=== PATIENT | female | born 1985 | race Caucasian/White ===

== ENCOUNTER 2017-09-12 10:55 | Emergency (ER) | payer SELFPAY ==
[2017-09-12 11:14] VITALS: BP 114/70; PULSE 73; RESP 20; TEMP 36.6; O2SAT 97; BMI 28.3
--- NOTE | 2017-09-12 11:18 | HMH.EDUTC ---
[facility] [place] Impression: Sore throat Disposition: Home, Self-Care Condition on Discharge: Good Instructions: DI for Allergic Rhinitis Additional Instructions: * No sign of bacterial infection. Sounds like possibly drainage from allergies. * Monitor Temp. Feelish and having a fever are not the same thing. We would not expect fevers with allergies so if occurring, be sure to follow up. * Encourage fluids, water, gatorade, powerade, pedialyte if /toddler/child * warm salt water gargles * warm fluids * sore throat lozenges * sleep elevated * humidifier/vaporizer * Start Claritin 10mg daily and flonase 2 sprays each nostril daily. Can take several days before you notice improvement. Wait one week and if symptoms controlled, back down to 1 spray flonase each nostril and the claritin. If symptoms return, go back to 2 sprays but if symptoms remain controlled, give it a week and try stopping flonase. If symptoms return, start back at 1 spray each nostril with claritin but if symptoms remain controlled, continue just claritin. Wait another week and if still controlled, try stopping claritin. If symptoms return, restart claritin but if remain controlled, no medication. * * Your throat swab was sent for culture. Those results are typically sent to your primary care. Be sure to follow up in 2-3 days if no improvement so they can review those results and treat if necessary. If you don't have primary care, I recommend you get one but in the mean time, you will have to return to a walk in clinic. Referrals: Annalee Pack PA [Primary Care Provider] - (IMMEDIATELY for new or worsening symptoms OR no noticeable improvement. 911 for difficulty breathing or swallowing.) Time of Disposition: 12:28 Medical Decision Making - Bob Inquiry Pt receiving controlled substance: No Vital Signs: 09/12/17 11:14 Temperature 98 F Temperature Source Temporal Artery Scan Pulse Rate [Brachial] 73 Respiratory Rate 20 Blood Pressure [Right Arm] 114/70 Blood Pressure Mean [Right Arm] 84 Blood Pressure Position [Right Arm] Sitting 02 Sat by Pulse Oximetry 97 - Lab Data Lab results reviewed: Yes: I reviewed the patient's lab results. Lab Results 09/12/17 11:14: Strep Scn Rapid Clinic Negative 09/12/17 11:49: Monoscreen Negative Orders (Tests/Meds): ORDERS Category Date Time Status Strep Screen Confirmation Stat Micro 09/12/17 11:14 [place] [facility] [place] - General Stated complaint: sore throat fever Time Seen by Provider: 09/12/17 11:10 Mode of Arrival: Ambulatory Source of Information: Patient Limitations: No Limitations Description of Symptoms (Recalled from Triage Doc. by RN): SORE THROAT FOR 1 MONTH HEENT Symptoms (Recalled from RN notes): Yes Resp Symptoms (Recalled from RN notes): No Skin Symptoms (Recalled from RN notes): No MS Symptoms (Recalled from RN notes): No Functional Status (Recalled from RN notes): NA - History of Present Illness Provider Complaint: c/o sore throat x 1 month. Without insurance so was trying to treat at home. Warm salt water gargles help but then returns. Ibprofen helps other symptoms . Intermittently feels feverish. some days I do and some I don't . Energy zapped . No difficulty swallowing just hurts and I feel like it has been swollen over a month now . No known sick contacts. Worried about her symptoms because of 2 small kids at home. - Related Data Allergies Allergy/AdvReac Type Severity Reaction Status Date / Time No Known Allergies Allergy Unverified 06/11/17 14:47 - Worker's Comp Is this a Worker's Comp case?: No [facility] History I have reviewed the patient's past medical history: Yes Medical History: Denies:: Diabetes Mellitus Type 1, Diabetes Mellitus Type 2, Hypertension Other Surgeries: Yes: Appendectomy, Other (cholecystectomy; right ovary) - Social History Alcohol Intake: never - Psychiatric History Expresses thoughts of harming self/other
--- NOTE | 2017-09-12 11:21 | ED_ITS ---
[facility] – [place] Clinical Impression: Sore throat Disposition: Home, Self-Care Condition on Discharge: Good Instructions: DI for Allergic Rhinitis Additional Instructions: * No sign of bacterial infection. Sounds like possibly drainage from allergies. * Monitor Temp. Feelish and having a fever are not the same thing. We would not expect fevers with allergies so if occurring, be sure to follow up. * Encourage fluids, water, gatorade, powerade, pedialyte if /toddler/ child * warm salt water gargles * warm fluids * sore throat lozenges * sleep elevated * humidifier/vaporizer * Start Claritin 10mg daily and flonase 2 sprays each nostril daily. Can take several days before you notice improvement. Wait one week and if symptoms controlled, back down to 1 spray flonase each nostril and the claritin. If symptoms return, go back to 2 sprays but if symptoms remain controlled, give it a week and try stopping flonase. If symptoms return, start back at 1 spray each nostril with claritin but if symptoms remain controlled, continue just claritin. Wait another week and if still controlled, try stopping claritin. If symptoms return, restart claritin but if remain controlled, no medication. * * Your throat swab was sent for culture. Those results are typically sent to your primary care. Be sure to follow up in 2-3 days if no improvement so they can review those results and treat if necessary. If you don't have primary care , I recommend you get one but in the mean time, you will have to return to a walk in clinic. Referrals: Annalee Pack PA [Primary Care Provider] - (IMMEDIATELY for new or worsening symptoms OR no noticeable improvement. 911 for difficulty breathing or swallowing.) Time of Disposition: 12:28 Medical Decision Making - Bob Inquiry Pt receiving controlled substance: No Vital Signs: 09/12/17 11:14 Temperature 98 F Temperature Source Temporal Artery Scan Pulse Rate [Brachial] 73 Respiratory Rate 20 Blood Pressure [Right Arm] 114/70 Blood Pressure Mean [Right Arm] 84 Blood Pressure Position [Right Arm] Sitting 02 Sat by Pulse Oximetry 97 - Lab Data Lab results reviewed: Yes: I reviewed the patient's lab results. Lab Results 09/12/17 11:14: Strep Scn Rapid Clinic Negative 09/12/17 11:49: Monoscreen Negative Orders (Tests/Meds): ORDERS Category Date Time Status Strep Screen Confirmation Stat Micro 09/12/17 11:14 Received [facility] [place] HPI - General Stated complaint: sore throat fever Time Seen by Provider: 09/12/17 11:10 Mode of Arrival: Ambulatory Source of Information: Patient Limitations: No Limitations Description of Symptoms (Recalled from Triage Doc. by RN): SORE THROAT FOR 1 MONTH HEENT Symptoms (Recalled from RN notes): Yes Resp Symptoms (Recalled from RN notes): No Skin Symptoms (Recalled from RN notes): No MS Symptoms (Recalled from RN notes): No Functional Status (Recalled from RN notes): NA - History of Present Illness Provider Complaint: c/o sore throat x 1 month. Without insurance so was trying to treat at home. Warm salt water gargles help but then returns. Ibprofen helps other symptoms . Intermittently feels feverish. some days I do and some I don' t . Energy zapped . No difficulty swallowing just hurts and I feel like it has been swollen over a month now . No known sick contacts. Worried about her symptoms because of 2 small kids at home. - Related Data Allergies Allergy
--- NOTE | 2017-09-12 11:39 | PC.NURSE ---
LAB CALLED AT [id number]
[2017-09-12 11:41] LABS: UTC Strep Screen (Rapid) Negative (Negative)
[2017-09-12 12:19] LABS: Monoscreen (Rapid) Negative (Negative)
[2017-09-12 12:32] VITALS: BP 114/70; PULSE 73; RESP 20; TEMP 36.6; O2SAT 97
== END 2017-09-12 12:34 | disposition home or self-care (01) ==
PROVIDERS: Emergency Provider Nurse Practitioner Family; Family Provider Physician Assistant; PCP Physician Assistant
DX: J02.9 Acute pharyngitis, unspecified (principal)
CPT/HCPCS: 36415; 86318; 87880; 99202

== ENCOUNTER → 2018-03-11 10:29 | Outpatient (REF) | payer OTHER, SELFPAY ==
[2018-03-11 17:49] LABS: Basophils % 0.3 % (0.1-2.0); Eosinophils # 0.2 K/mm3 (0.0-0.4); Eosinophils % 1.5 % (0.1-12.0); Hematocrit 40.7 % (37.0-47.0); Hemoglobin 13.2 g/dL (12.2-16.2); Lymphocytes # 2.9 K/mm3 (0.7-4.5); Lymphocytes % 28.8 K/mm3 (10-50); Mean Corpuscular HGB Conc 32.4 g/dL (31.8-35.4); Mean Corpuscular Hemoglobin 29.4 pg (27.0-31.2); Mean Corpuscular Volume 90.7 fl (81-99); Mean Platelet Volume 8.3 fl (7.4-10.4); Monocytes # 0.5 K/mm3 (0.1-1.0); Neutrophils # 6.4 K/mm3 (1.8-7.8); Neutrophils % 64.4 % (37.0-80.0); Platelet Count 353 K/mm3 (142-424); Red Blood Count 4.49 M/mm3 (4.20-5.40); White Blood Count 9.9 K/mm3 (4.8-10.8)
[2018-03-11 18:55] LABS: Alanine Aminotransferase 28 U/L (12-78); Albumin/Globulin Ratio 1.4 (1.1-1.8); Aspartate Amino Transferase 15 U/L (15-37); Bilirubin,Total 0.4 mg/dL (0.2-1.0); Blood Urea Nitrogen 16 mg/dL (7-18); Calcium 8.6 mg/dL (8.5-10.1); Carbon Dioxide 25 mmol/L (21.0-32.0); Chloride 107 mmol/L (98-107); Cholesterol 120 mg/dL (140-200); Creatinine,Serum 0.63 mg/dL (0.55-1.02); Estimated Glomerular Filt Rate 111 ml/min (>60); GFR (African American) 134 ML/MIN (>60); Globulin 2.9 gm/dl (1.3-3.2); Glucose 86 mg/dL (74-106); HDL Cholesterol 46 mg/dL (29-89); Sodium 142 mmol/L (136-145); Total Protein,Serum 6.9 gm/dL (6.4-8.2); Triglycerides 48 mg/dL (30-200); VLDL Cholesterol 10 mg/dL (0-40)
[2018-03-11 18:56] LABS: Alkaline Phosphatase 84 U/L (46-116); Chol/HDL Ratio 2.6 (1-3.5); Free Thyroxine Index 2.8 ug/dL (5.93-13.13); LDL Cholesterol 64 mg/dL (0-130); T4 (Thyroxine) 8.4 ug/dl (4.7-13.3); Thyroid Stimulating Hormone 3.08 uIU/ml (0.358-3.740); Triiodothryronine (T3) Uptake 33 % (31-39)
[2018-03-14 18:39] LABS: Vitamin D 25 Hydroxy 31.7 ng/mL (30.0-100.0)
== END ==
LOC: LAB 10:29
PROVIDERS: Visit Provider Physician Assistant
DX: R51 Headache (principal)
CPT/HCPCS: 80053; 80061; 82652; 84436; 84443; 84479; 85025

== ENCOUNTER → 2018-09-30 08:48 | Outpatient (CLI) | payer OTHER, SELFPAY ==
--- NOTE | 2018-09-30 08:50 | US_ITS ---
US transvaginal HISTORY: Irregular cycles, pelvic pain ITS.REASON: US T/V- RLQP ORDERING PHYSICIAN: Jeison Galdamez MD PATIENT AGE: 33 years Comparison: 05/17/2015 Last menstrual period: 09/09/2018 FINDINGS: The uterus is 9 x 4.9 x 6.2 cm with combined endometrial thickness of 1.1 cm. The left ovary is 2.4 x 1.5 x 1.8 cm containing small follicles. Blood flow is present. The right ovary is 5 x 3 cm and contains a 3 x 2.5 cm area of decreased echogenicity with some low-level internal echoes which may represent a hemorrhagic ovarian cyst. There is minimal amount fluid around the right ovary. IMPRESSION: 1. 3 cm complex right ovarian cyst which may represent a hemorrhagic cyst with a small amount fluid in this area 2. Mildly prominent uterus with endometrial thickness upper limits of normal
== END ==
PROVIDERS: PCP Physician Assistant; Referring Provider Nurse Practitioner Obstetrics & Gynecology; Visit Provider Nurse Practitioner Obstetrics & Gynecology
DX: R10.31 Right lower quadrant pain (principal)
CPT/HCPCS: 76830

== ENCOUNTER → 2019-02-06 14:07 | Outpatient (CLI) | payer OTHER, SELFPAY ==
--- NOTE | 2019-02-06 14:11 | XR_ITS ---
PROCEDURE: XR WRIST RT MIN 3V CLINICAL INDICATION: wrist pain Wrist pain with a knot on the styloid process COMPARISON: No exams were available for comparison FINDINGS: No fracture, dislocation, lytic change, or blastic change evident. No significant degenerative change. No obvious soft tissue calcification IMPRESSION: Negative right wrist Dictated by: Jose Morataya MD 02/06/2019 16:36 Signed by: <Electronically signed by oJse Morataya MD in [place]> 02/06/2019 16:36
== END ==
PROVIDERS: PCP Emergency Medicine; Visit Provider Nurse Practitioner Family
DX: M25.531 Pain in right wrist (principal)
CPT/HCPCS: 73110

== ENCOUNTER 2019-02-19 12:28 | Outpatient (RCR) | payer OTHER, SELFPAY | END 2019-02-19 12:45 | disposition home or self-care (01) | LOC: OT 12:28 | PROVIDERS: Visit Provider Orthopaedic Surgery | DX: M25.531 Pain in right wrist (principal) | CPT/HCPCS: 97763 ==

== ENCOUNTER 2019-10-18 14:46 | Emergency (ER) | payer OTHER, SELFPAY ==
[2019-10-18 15:08] VITALS: BP 122/60; PULSE 80; RESP 18; TEMP 37.2; O2SAT 99; BMI 26.5
[2019-10-18 15:26] VITALS: BP 122/60; PULSE 80; RESP 18; TEMP 37.2; O2SAT 99
--- NOTE | 2019-10-18 15:27 | HMH.EDUTC ---
[facility] – [place] Disposition Clinical Impression: Foot pain Qualifiers: Laterality: bilateral Qualified Code(s): M79.671 - Pain in right foot Eczema Qualifiers: Eczema type: flexural Qualified Code(s): L20.82 - Flexural eczema Disposition: Home, Self-Care Condition on Discharge: Good Instructions: Eczema, DI for Foot Pain Additional Instructions: Follow up with Dr. Dobson regarding your foot pain. Use the steroid cream that was prescribed on the rash areas on your arms as directed. Follow up with your regular doctor. GO TO THE ER FOR ANY WORSENING SYMPTOMS Prescriptions: Triamcinolone Acetonide 1 applicatio TP TIDP PRN 7 Days #1 tube PRN Reason: Itching Transmission Status: Received by [facility] #[id number] Referrals: Annalee Pack PA [Primary Care Provider] - Denice Dobson DPM [Staff Physician] - Time of Disposition: 15:36 Medical Decision Making - Medical Records Medical records reviewed: No: I reviewed the patient's medical records. - Bob Inquiry Pt receiving controlled substance: No Vital Signs: 10/18/19 15:08 10/18/19 15:26 Temperature 98.9 F 98.9 F Temperature Source Oral Pulse Rate 80 Pulse Rate [Right Brachial] 80 Respiratory Rate 18 18 Blood Pressure 122/60 Blood Pressure [Right Arm] 122/60 Blood Pressure Mean [Right Arm] 80 Blood Pressure Source [Right Arm] Automatic Cuff Blood Pressure Position [Right Arm] Sitting 02 Sat by Pulse Oximetry 99 Oxygen Delivery Method Room Air [facility] [place] HPI - General Stated complaint: rash on arms and feet Time Seen by Provider: 10/18/19 15:27 Mode of Arrival: Ambulatory Source of Information: Patient Limitations: No Limitations Description of Symptoms (Recalled from Triage Doc. by RN): PATIENT C/O ITCHING AND BURNING TO BOTTOMS OF BILATERAL FEET AND A RASH ON VARIOUS AREAS OF HER BODY THAT HAS BEEN COMING AND GOING SINCE MAY. DENIES ANY OTHER SYMPTOMS HEENT Symptoms (Recalled from RN notes): No Resp Symptoms (Recalled from RN notes): No Skin Symptoms (Recalled from RN notes): Yes MS Symptoms (Recalled from RN notes): No Functional Status (Recalled from RN notes): WNL - History of Present Illness Provider Complaint: She c/o bilateral foot pain for the past 2 weeks. She denies any injury. She denies any rash or redness of her feet. She describes the pain as burning or itching of the bottoms of her feet and between her toes . The only thing that helps it is getting in a warm bath tub of water. She has tried ibuprofen, OTC foot fungal creams. She is not a diabetic. She also c/o has a rash on the inside of both her elbows. There is a rash in these areas. She has had eczema in this area in the past. She has been using OTC moisturizing lotions but so far they have not helped. - Related Data Home Medications Medication Instructions Recorded Confirmed norgestimate-ethinyl estradioL 1 tab PO DAILY 10/18/19 10/18/19 [Previfem Tablet] Previous Rx's Medication Instructions Recorded Triamcinolone Acetonide 1 applicatio TP TIDP PRN 7 Days #1 10/18/19 tube Allergies Allergy/AdvReac Type Severity Reaction Status Date / Time No Known Allergies Allergy Verified 02/19/19 11:40 - Worker's Comp Is this a Worker's Comp case?: No [facility] History - Hepatitis A Screen Drug use history?: No High risk sexual behaviors?: No History of sexually transmitted infection?: No Currently employed?: No Childcare worker?: No Do you have indoor plumbing?: Yes Do you have electricity?: Yes Attestation statement:: This patient has been screened for Hepatitis A risk factors. I have reviewed the patient's past medical history: Yes Medical History: Denies:: Cancer, Diabetes Mellitus Type 1, Diabetes Mellitus Type 2, Hypertension, MRSA Other Surgeries: Yes: Appendectomy, Cholecystectomy, Other Amputation: No Fractures: No Comment: right ovary removed, dermoid cyst - Social History Smoking Status: Never smoker [facility]
== END 2019-10-18 15:30 | disposition home or self-care (01) ==
PROVIDERS: Emergency Provider Nurse Practitioner Family; PCP Physician Assistant
DX: M79.671 Pain in right foot (principal); L20.82 Flexural eczema; Z90.49 Acquired absence of other specified parts of digestive tract; Z90.79 Acquired absence of other genital organ(s)
CPT/HCPCS: 99201

== ENCOUNTER 2020-02-02 18:00 | Emergency (ER) | payer OTHER, SELFPAY ==
[2020-02-02 18:41] VITALS: BP 132/86; PULSE 74; RESP 20; TEMP 37.2; O2SAT 98; BMI 25.3
--- NOTE | 2020-02-02 18:55 | HMH.EDUTC ---
[facility] [place] Clinical Impression: Poison chelsea dermatitis Disposition: Home, Self-Care Condition on Discharge: Good Instructions: DI for Poison [place] Allergy, Poison [place], Poison [place], Poison Sumac, Poisonous Plants: [place], [place], and Sumac: Beware the Oils, Summertime Rashes: Poison [place], [place], and Sumac Additional Instructions: Take medication as prescribed *Cool compresses may help with itching and irritation of rash Oatmeal bathes may help with itching and help to dry the rash Over the counter Calamine lotion to area may help to dry the rash and help with itching Over the counter Benadryl may help with itching Follow up with family doctor if no improvement Return if needed Straight to ER if any life threatening symptoms Prescriptions: methylPREDNISolone [Medrol 4mg tab] 4 mg PO DIRECTED #21 tab Transmission Status: Pending to [facility] Referrals: Annalee Pack PA [Primary Care Provider] - As needed Time of Disposition: 19:00 Medical Decision Making - Bob Inquiry Pt receiving controlled substance: No Bob was queried for this patient: No Vital Signs: 02/02/20 18:41 Temperature 99.0 F Temperature Source Oral Pulse Rate [Right Brachial] 74 Respiratory Rate 20 Blood Pressure [Right Arm] 132/86 Blood Pressure Mean [Right Arm] 101 Blood Pressure Source [Right Arm] Automatic Cuff Blood Pressure Position [Right Arm] Sitting 02 Sat by Pulse Oximetry 98 Oxygen Delivery Method Room Air [facility] [place]PI - General Stated complaint: poison chelsea possible infection on legs Time Seen by Provider: 02/02/20 18:55 Mode of Arrival: Ambulatory Source of Information: Patient Limitations: No Limitations Description of Symptoms (Recalled from Triage Doc. by RN): PATIENT C/O POISON CHELSEA TO BILATERAL LEGS X 1 WEEK. STATES SHE JUST COMPLETED PREDNISONE X 7 DAYS BUT RASH IS NOT BETTER HEENT Symptoms (Recalled from RN notes): No Resp Symptoms (Recalled from RN notes): No Skin Symptoms (Recalled from RN notes): Yes MS Symptoms (Recalled from RN notes): No Functional Status (Recalled from RN notes): WNL - History of Present Illness Provider Complaint: Patient states taht she was recently treated for poison chelsea and has completed a medrol dose pack and states that the rash is better but still having areas of breakout States that she came back in today to see if she needed more steriod to get rid of the poison chelsea - Related Data Home Medications Medication Instructions Recorded Confirmed norgestimate-ethinyl estradioL 1 tab PO DAILY 10/18/19 02/02/20 [Previfem Tablet] Previous Rx's Medication Instructions Recorded methylPREDNISolone [Medrol 4mg 4 mg PO DIRECTED #21 tab 02/02/20 tab] Allergies Allergy/AdvReac Type Severity Reaction Status Date / Time No Known Allergies Allergy Verified 02/19/19 11:40 - Worker's Comp Is this a Worker's Comp case?: No [facility] History - Hepatitis A Screen Drug use history?: No High risk sexual behaviors?: No History of sexually transmitted infection?: No Currently employed?: No Childcare worker?: No Do you have indoor plumbing?: Yes Do you have electricity?: Yes Attestation statement:: This patient has been screened for Hepatitis A risk factors. I have reviewed the patient's past medical history: Yes Medical History: Denies:: Cancer, Diabetes Mellitus Type 1, Diabetes Mellitus Type 2, Hypertension, MRSA Other Surgeries: Yes: Appendectomy, Cholecystectomy, Other Amputation: No Fractures: No Comment: right ovary removed, dermoid cyst - Social History Smoking Status: Never smoker Alcohol Intake: never Substance Use Type: denies use Occupational Status: other Housing: house Household Members: family Family Hx:: No significant family history ROS Obtained: Yes All systems reviewed & no additional complaints, Yes Systems reviewed as appropriate & no additional complaints - Constitutional Constitutional: Reports system reviewed and no add
[2020-02-02 19:01] VITALS: BP 132/86; PULSE 74; RESP 20; TEMP 37.2; O2SAT 98
== END 2020-02-02 19:05 | disposition home or self-care (01) ==
PROVIDERS: Emergency Provider Nurse Practitioner; PCP Physician Assistant
DX: L23.7 Allergic contact dermatitis due to plants, except food (principal)
CPT/HCPCS: 99201

== ENCOUNTER 2020-03-08 12:20 | Emergency (ER) | payer OTHER, SELFPAY ==
--- NOTE | 2020-03-08 12:48 | HMH.EDUTC ---
[facility] [place] Clinical Impression: Contact dermatitis Qualifiers: Contact dermatitis type: allergic Contact dermatitis trigger: unspecified trigger Qualified Code(s): L23.9 - Allergic contact dermatitis, unspecified cause Disposition: Home, Self-Care Condition on Discharge: Good Instructions: Contact Dermatitis, DI for Contact Dermatitis Additional Instructions: Avoid contact with the offending substance (poison brenden). Don't start the oral steroids until tomorrow. Don't put the topical steroids (triamcinolone) on your face or your groin. Follow up with your regular doctor. GO TO THE ER FOR ANY WORSENING SYMPTOMS OR CONCERNS Don't start the oral steroids until tomorrow, since you had the shot here today. Prescriptions: methylPREDNISolone [Medrol] 4 mg PO DIRECTED 6 Days #21 tab.ds.pk Transmission Status: Received by [facility] Triamcinolone Acetonide 1 applicatio TP TIDP PRN 7 Days #1 tube PRN Reason: Itching Transmission Status: Received by [facility] Referrals: Annalee Pack PA [Primary Care Provider] - Time of Disposition: 13:10 Medical Decision Making - Medical Records Medical records reviewed: No: I reviewed the patient's medical records. - Bob Inquiry Pt receiving controlled substance: No Vital Signs: 03/08/20 12:51 03/08/20 13:12 Temperature 98.3 F 98.3 F Temperature Source Oral Pulse Rate 63 Pulse Rate [Right Brachial] 63 Respiratory Rate 20 20 Blood Pressure 111/70 Blood Pressure [Right Arm] 111/70 Blood Pressure Mean [Right Arm] 83 Blood Pressure Source [Right Arm] Automatic Cuff Blood Pressure Position [Right Arm] Sitting 02 Sat by Pulse Oximetry 100 Oxygen Delivery Method Room Air Orders (Tests/Meds): ED MEDICATIONS Discontinued Medications Generic Name Dose Route Start Last Admin Trade Name Freq PRN Reason Stop Dose Admin Methylprednisolone Sodium Succinate 125 mg 03/08/20 12:55 03/08/20 12:58 Solu-Medrol 125mg/2ml Vial IM 03/08/20 12:56 125 mg ONCE ONE Administration [facility] [place] - General Stated complaint: poision brenden Time Seen by Provider: 03/08/20 12:55 - History of Present Illness Provider Complaint: She states that she has poison brenden rash on her right leg, right arm and face. Her symptoms began about 3 days ago. She has a history of being very sensitive to poison brenden. - Related Data Home Medications Medication Instructions Recorded Confirmed norgestimate-ethinyl estradioL 1 tab PO DAILY 10/18/19 02/12/20 [Previfem Tablet] Previous Rx's Medication Instructions Recorded triamcinolone acetonide 0.025 % 1 applic TOPICAL BID #80 g 02/12/20 topical cream Triamcinolone Acetonide 1 applicatio TP TIDP PRN 7 Days #1 03/08/20 tube methylPREDNISolone [Medrol] 4 mg PO DIRECTED 6 Days #21 03/08/20 tab.ds.pk Allergies Allergy/AdvReac Type Severity Reaction Status Date / Time No Known Allergies Allergy Verified 02/12/20 16:21 [facility] History - Hepatitis A Screen Attestation statement:: This patient has been screened for Hepatitis A risk factors. I have reviewed the patient's past medical history: Yes Medical History: Denies:: Cancer, Diabetes Mellitus Type 1, Diabetes Mellitus Type 2, Hypertension, MRSA Other Surgeries: Yes: Appendectomy, Cholecystectomy, Other Amputation: No Fractures: No Comment: right ovary removed, dermoid cyst - Social History Smoking Status: Never smoker Alcohol Intake: never Substance Use Type: denies use Occupational Status: other Housing: house Household Members: family Family Hx:: No significant family history ROS Obtained: Yes All systems reviewed & no additional complaints - Constitutional Constitutional: Denies chills, Denies fever(s) - Eyes Eyes: Denies eye discharge, Denies itchy eyes - Musculoskeletal Musculoskeletal: Denies joint pain - Integumentary/Breasts Skin/Breast: Reports as per HPI Physical Exam
[2020-03-08 12:51] VITALS: BP 111/70; PULSE 63; RESP 20; TEMP 36.8; O2SAT 100; BMI 25.3
[2020-03-08 13:12] VITALS: BP 111/70; PULSE 63; RESP 20; TEMP 36.8; O2SAT 100
== END 2020-03-08 13:15 | disposition home or self-care (01) ==
PROVIDERS: Emergency Provider Nurse Practitioner Family; PCP Physician Assistant
DX: L23.9 Allergic contact dermatitis, unspecified cause (principal)
CPT/HCPCS: 96372; 99201

== ENCOUNTER → 2020-07-27 15:56 | Outpatient (CLI) | payer OTHER, SELFPAY ==
[2020-07-27 19:27] LABS: Basophils % 0.3 % (0.1-2.0); Eosinophils # 0.2 K/mm3 (0.0-0.4); Eosinophils % 2.2 % (0.1-12.0); Hematocrit 39.5 % (37.0-47.0); Hemoglobin 12.8 g/dL (12.2-16.2); Lymphocytes % 33.4 % (10-50); Mean Corpuscular HGB Conc 32.5 g/dL (31.8-35.4); Mean Corpuscular Hemoglobin 30.1 pg (27.0-31.2); Mean Corpuscular Volume 92.6 fl (81-99); Mean Platelet Volume 8.5 fl (7.4-10.4); Monocytes # 0.4 K/mm3 (0.1-1.0); Neutrophils # 5.4 K/mm3 (1.8-7.8); Platelet Count 299 K/mm3 (142-424); Red Blood Count 4.26 M/mm3 (4.20-5.40); Red Cell Distribution Width 12.7 % (11.5-17.5)
[2020-07-27 19:59] LABS: Alanine Aminotransferase 21 U/L (12-78); Albumin Level 4.5 g/dl (3.5-5.0); Albumin/Globulin Ratio 1.6 (1.1-1.8); Alkaline Phosphatase 52 U/L (38-126); Anion Gap 11.1 mEq/L (5-15); Aspartate Amino Transferase 24 U/L (14-36); Bilirubin,Total 0.4 mg/dl (0.2-1.3); Blood Urea Nitrogen 18 mg/dl (7-17); Calcium 9.4 mg/dl (8.4-10.2); Carbon Dioxide 25 mmol/L (22.0-30.0); Chloride 103 mmol/L (98-107); Chol/HDL Ratio 2.6 (1-3.5); Cholesterol 155 mg/dl (140-200); Estimated Glomerular Filt Rate 96 ml/min (>60); GFR (African American) 117 ML/MIN (>60); Globulin 2.8 g/dL (1.3-3.2); Glucose 85 mg/dl (74-100); HDL Cholesterol 60 mg/dl (40-60); Potassium 4.1 mmoL/L (3.5-5.1); Sodium 135 mmol/L (136-145); Total Protein,Serum 7.3 g/dl (6.3-8.2); Triglycerides 90 mg/dl (30-150); VLDL Cholesterol 18 mg/dL (0-40)
[2020-07-27 20:16] LABS: 25-OH Vitamin D, Total 32.6 ng/mL (30-100)
[2020-07-27 20:17] LABS: Free T4 (Free Thyroxine) 1.28 ng/dl (0.78-2.19)
[2020-07-27 20:32] LABS: Thyroid Stimulating Hormone 2.29 uIU/mL (0.465-4.68)
[2020-07-27 20:50] LABS: Vitamin B12 312 pg/mL (239-931)
[2020-07-28 14:08] LABS: Monoscreen (Rapid) Negative (Negative)
== END ==
LOC: LAB 15:57
PROVIDERS: PCP Physician Assistant; Visit Provider Physician Assistant
DX: R00.2 Palpitations (principal); R51.9 Headache, unspecified; R53.83 Other fatigue
CPT/HCPCS: 80053; 80061; 82306; 82607; 84439; 84443; 85025; 86318; 93225; 93226

== ENCOUNTER → 2020-07-30 08:03 | Outpatient (CLI) | payer OTHER, SELFPAY ==
[2020-07-30 09:39] LABS: HCG Qualitative, Serum Negative (Negative)
== END ==
PROVIDERS: Visit Provider Physician Assistant
DX: Z32.00 Encounter for pregnancy test, result unknown; R53.83 Other fatigue; R51.9 Headache, unspecified
CPT/HCPCS: 84703

== ENCOUNTER → 2020-08-08 13:22 | Outpatient (CLI) | payer OTHER, SELFPAY ==
--- NOTE | 2020-08-08 13:22 | CA_ITS ---
APPROVED REPORT EXAM: Comprehensive 2D, Doppler, and color-flow Echocardiogram [employer]: Radha Webster, RT(R) Ht: 5 ft 3 in Wt: 140lbs BSA: 1.66 BP: 104/70 mmHg Indications: syncope, palpitations, fatigue 2D Dimensions LVOT 1.89 cm (M/F) 1.5-2.5 M-Mode Dimensions RVDd 1.10 cm (0.9-2.6) LA Diam 2.64 cm (1.9-4.0) LVDd 4.26 cm (3.5-5.7) Ao Diam 2.42 cm (2.0-3.7) LVDs 3.11 cm (3.5-5.7) IVSd 0.72 cm (0.6-1.1) PWd 0.51 cm (0.6-1.1) EF (Teich) 53.00% FS 27.00% EDV (Teich) 81.30 mL ESV (Teich) 38.20 mL LV Diastology E Decel Time 150.00 (160-240 msec) E/A Ratio 1.0 MED E' 14.00 (< 7 cm/sec) E'/MED E' Ratio 6.81 (>14) LAT E' 17.70 (<10 cm/sec) E/LAT E' Ratio 5.39 (>14) Mitral Valve MV E Max Long. 95.00 (40-130 cm/s) MV A Velocity 99.00 (40-130 cm/s) E/A Ratio 0.97 MV Decel. Time 150.00 (160-240 ms) MV PHT 44.00 ms Left Ventricle Left atrium is normal size, left ventricle is normal size, there is no concentric left ventricular hypertrophy, visually estimated ejection fraction 55% with no regional wall motion abnormality, diastolic parameters are within normal range. Right Ventricle Right atrium and right ventricle are normal size and contractility. Aortic Valve Aortic valve is grossly normal, there is no aortic stenosis or aortic insufficiency. Mitral Valve Mitral valve grossly normal, there is trace mitral regurgitation. Tricuspid Valve Tricuspid valve is grossly normal, there is trace tricuspid regurgitation, tricuspid regurgitation jet velocity is inadequate for calculation of the right ventricular systolic pressure. Pulmonic Valve Pulmonic valve is poorly visualized. Great Vessels Aortic root is normal size. Pericardium No significant pericardial effusion noted. Conclusion 1. Normal left ventricular size, preserved left ventricular systolic function, visually estimated ejection fraction 55% with no regional wall motion abnormality, diastolic parameters are within normal range. 2. Trace mitral and tricuspid regurgitation. 3. No significant pericardial effusion noted. Electronically signed by : Royal Soto, 08/08/2020 21:16:14
== END ==
PROVIDERS: PCP Physician Assistant; Visit Provider Physician Assistant
DX: R07.89 Other chest pain (principal); R06.00 Dyspnea, unspecified; R00.2 Palpitations; R55 Syncope and collapse; R94.31 Abnormal electrocardiogram [ECG] [EKG]; Z82.49 Family history of ischemic heart disease and other diseases of the circulatory system
CPT/HCPCS: 93306

== ENCOUNTER → 2020-09-30 10:16 | Outpatient (CLI) | payer OTHER, SELFPAY ==
--- NOTE | 2020-09-30 10:16 | US_ITS ---
PROCEDURE: US TRANSVAGINAL CLINICAL INDICATION: Right lower quadrant pain COMPARISON: US TRANVAG US transvaginal from 09/30/2018 FINDINGS: UTERUS: 7cm x 5cmx 4cm with a combined endometrial thickness of 3mm LEFT OVARY: [id number] with a volume of 7.5ml. RIGHT OVARY: [id number] with a volume of 4.4ml. Blood flow is seen in both ovaries. There are small bilateral ovarian follicles measuring up to 1.7 cm on left. No cul-de-sac fluid evident. IMPRESSION: Unremarkable pelvic ultrasound Dictated by: Jose Morataya MD 09/30/2020 14:01 Jose Morataya MD in [place] 09/30/2020 14:01
== END ==
LOC: RAD 10:16
PROVIDERS: PCP Physician Assistant; Visit Provider Nurse Practitioner Obstetrics & Gynecology
DX: R10.31 Right lower quadrant pain (principal)
CPT/HCPCS: 76830

== ENCOUNTER → 2020-10-26 08:40 | Outpatient (CLI) | payer OTHER, SELFPAY ==
[2020-10-26 09:08] LABS: Basophils % 0.4 % (0.1-2.0); Eosinophils # 0.2 K/mm3 (0.0-0.4); Eosinophils % 1.8 % (0.1-12.0); Hematocrit 41.5 % (37.0-47.0); Lymphocytes # 3.2 K/mm3 (0.7-4.5); Lymphocytes % 35.2 % (10-50); Mean Corpuscular HGB Conc 33.6 g/dL (31.8-35.4); Mean Corpuscular Hemoglobin 30.5 pg (27.0-31.2); Mean Corpuscular Volume 90.8 fl (81-99); Mean Platelet Volume 7.6 fl (7.4-10.4); Monocytes # 0.4 K/mm3 (0.1-1.0); Monocytes % 4.1 % (1.7-9.3); Neutrophils # 5.3 K/mm3 (1.8-7.8); Neutrophils % 58.5 % (37.0-80.0); Platelet Count 291 K/mm3 (142-424); Red Blood Count 4.57 M/mm3 (4.20-5.40); Red Cell Distribution Width 12.6 % (11.5-17.5)
[2020-10-26 09:43] LABS: Chloride 102 mmol/L (98-107)
[2020-10-26 09:44] LABS: Potassium 4.3 mmoL/L (3.5-5.1); Sodium 136 mmol/L (136-145)
[2020-10-26 09:47] LABS: Anion Gap 11.3 mEq/L (5-15); Blood Urea Nitrogen 16 mg/dl (7-17); Calcium 9.6 mg/dl (8.4-10.2); Carbon Dioxide 27 mmol/L (22.0-30.0); Estimated Glomerular Filt Rate 96 ml/min (>60); GFR (African American) 117 ML/MIN (>60); Glucose 93 mg/dl (74-100)
[2020-10-26 09:50] LABS: HCG Qualitative, Serum Negative (Negative)
[2020-10-26 09:58] LABS: Coronavirus 19 IgG Antibody Positive (Negative); Coronavirus 19 IgM Antibody Negative (Negative)
== END ==
PROVIDERS: Visit Provider Nurse Practitioner Obstetrics & Gynecology
DX: Z01.818 Encounter for other preprocedural examination (principal); Z20.822 Contact with and (suspected) exposure to COVID-19; Z30.09 Encounter for other general counseling and advice on contraception
CPT/HCPCS: 36415; 80048; 84703; 85025; 86328

== ENCOUNTER 2020-10-28 06:50 | Day surgery (SDC) | payer OTHER, SELFPAY ==
[2020-10-25 13:29] VITALS: BMI 25.7
[2020-10-28] VITALS (11 sets, daily range): BP systolic 104–129; BP diastolic 60–69; PULSE 61–109; RESP 14–18; TEMP 36.4–43; O2SAT 97–100
--- NOTE | 2020-10-28 09:40 | P.OP_ITS ---
Date of procedure: 10/28/20 Pre-op Diagnosis:: Desire for sterilization Post-op Diagnosis:: Desire for sterilization Procedure performed:: Laparoscopic bilateral salpingectomy Surgeon:: Jeison Galdamez MD INTER[employer]ET[employer] SPECIALIST:: Other (Antonio Bowden) Anesthesia: GETA Estimated blood loss (mL): 25 Clinical Note:: She is a 35-year-old lady who expressed desire for sterilization. The risks and benefits as well as the irreversibility of bilateral salpingectomy were discussed with the patient prior to surgery. Operative findings:: She had a normal-appearing anteverted slightly bulky uterus. Ovaries and tubes appeared normal. Pelvis appeared normal. Operative note:: She was taken to the operating room where general anesthesia was found be adequate. She was prepped and draped in normal sterile fashion in the semilithotomy position. A weighted speculum was placed in the vagina and the anterior lip of the cervix was grasped with a tenaculum. I then inserted a Monica uterine manipulator into the cervical os. The balloon was then insufflated. I changed gloves and injected 10 cc of 0.5% ropivacaine around her umbilicus and made a small incision within the umbilicus. I inserted a Veress needle into the abdominal cavity. The peritoneal cavity was then insufflated with carbon dioxide gas to a pressure of 20 mmHg. I then inserted a 5 millimeter trocar under direct vision. I injected through and through the pubic hairline, made a small incision here and inserted an 8 mm trocar under direct vision. I identified the inferior epigastric artery on the left side, went lateral to these and injected through and through. I then placed a 5 mm trocar here under direct vision. The pelvis and upper abdomen were then inspected and the findings were as previously dictated. I grasped the right tube at the cornua and using harmonic scalpel on coagulation mode I cut through the tube. I then grasped the distal tube and using harmonic scalpel cut along the mesosalpinx. The tube was removed through 8 mm trocar site. This was similarly performed on the patient's left side. I then injected 30 cc of 0.5% ropivacaine into the pelvis. After assuring hemostasis the gas was let out of the abdomen and hemostasis was once again assured. The abdomen was then reinsufflated. The secondary trochars were removed under direct vision. The gas was let out her abdomen. The primary trocar was then removed. The 8 mm trocar site was closed deeply with 2-0 Vicryl suture followed by subcuticular 4-0 Monocryl suture. The 5 mm trocar sites were closed with subcuticular 4-0 Monocryl. Sterile dressings were applied. The patient tolerated the procedure well and was taken to the recovery room in excellent condition. All sponge instrument and needle counts were correct. The estimated blood loss was less than 25 cc. Condition: stable Disposition: PACU Specimens:: Fallopian tubes Complications:: None
--- NOTE | 2020-10-28 11:57 | HMH.ANESCL ---
[facility] Anesthesia Checklist - Patient Identification Patient Identification: Arm Band - Structural Data Admitted From: Home Planned Operative Procedure/s: Lap bilateral salpingectomy Consent for Planned Operative Procedure(s) Verified: Yes Verified Documents: Surgical Consent, History and Physical - NPO Status Verified Time NPO: 00:00 - Additional verifications Anesthesia Reactions: No Hx Blood Transfusions: No Blood Transfusion Reaction: No - Airway Assessment C-Spine Mobility Assessed: Yes TMJ Mobility Assessed: Yes Dentition: Good Dentition - Neurological Assessment Level of Consciousness: Awake, Alert - Anesthesia Plan Anesthesia Risk discussed: Yes ASA Class: I Anesthesia Type: General [facility] History Medical History: Denies:: Cancer, Diabetes Mellitus Type 1, Diabetes Mellitus Type 2, Hypertension, Internal Pacemaker, MRSA, Seizures *Have you ever received a pneumonia vaccine?: No *Have you received a flu vaccine this season?: Yes Other Medical History: Denies: Blood Transfusion Reaction Anesthesia experience/problems:: None Other Surgeries: Yes: Appendectomy, Cholecystectomy, Other. No: Pacemaker Amputation: No Fractures: No - *Social History Last grade of school completed: High school graduate Smoking Status: Never smoker Alcohol Intake: never Substance Use Type: denies use *Occupational Status:: employed Housing: house Household Members: spouse, family *Travel in the last 8 weeks: None Family Hx:: Coronary Artery Disease, Heart Attack, Hypertension
--- NOTE | 2020-10-28 11:59 | P.PN_ITS ---
[facility] Anesthesia Record Part I Intake, IV Amount: 1,200 Estimated blood loss (mL): 20 Urine output (mL): 0 Blood Products used (#): none Blood Pressure: 113/67 SaO2: 98 Pulse Rate: 109 Respiratory Rate: 14 Temperature: 98.7 F Patient is:: Awake, Drowsy Stable to PACU at:: 09:52
--- NOTE | 2020-10-31 11:17 | P.PN_ITS ---
[facility] Anesthesia Record Part II Discharge Time: 10:12 Destination: Surgical Day Care (OP Surgery) PACU nurse assessment reviewed?: Yes Patient Condition:: Good Anesthesia Complications:: None Swallowing reflex intact?: Yes Cyanosis?: No Blood Pressure: 105/61 Pulse Rate: 72 Temperature: 98.7 F Mental Status: Alert & Oriented Pain level:: 0 Nausea and/or vomitting:: None Intake, IV Amount: 0
[2020-10-31 11:18] VITALS: BP 105/61; PULSE 72; TEMP 37.1
== END 2020-10-28 10:58 | disposition home or self-care (01) ==
LOC: OR 06:50
PROVIDERS: PCP Physician Assistant; Visit Provider Nurse Practitioner Obstetrics & Gynecology
PROC: (CPT 58661; principal; 2020-10-28 08:30)
DX: Z30.2 Encounter for sterilization (principal); Z79.899 Other long term (current) drug therapy
CPT/HCPCS: 58661; 96374; J2405; J2710

== ENCOUNTER 2020-12-26 13:07 | Emergency (ER) | payer OTHER, SELFPAY ==
[2020-12-26 13:10] VITALS: BP 104/59; PULSE 64; RESP 18; TEMP 37; O2SAT 98; BMI 25.6
--- NOTE | 2020-12-26 14:04 | HMH.EDUTC ---
[facility] [place] Clinical Impression: Poison che[place]sea dermatitis Disposition: Home, Self-Care Condition on Discharge: Good Instructions: Poisonous Plants: [place], [place], and [place]: Beware the Oils, Poison [place], Poison [place], Poison [place], DI for Poison [place] Allergy, Prednisone Additional Instructions: Start oral steriods tomorrow Cool compresses may help with itching associated with rash Over the counter Benadryl may help with itching Over the counter Calamine lotion and oatmeal baths may help to dry the rash Return if needed Straight to ER if any life threatening symptoms Prescriptions: predniSONE [Prednisone 10mg Tab Dose-Pack] 10 mg PO UD DOSE PK 6 Days #21 pack Transmission Status: Received by [facility] Referrals: Annalee Pack PA [Primary Care Provider] - As needed Time of Disposition: 14:12 Medical Decision Making - Bob Inquiry Pt receiving controlled substance: No Bob was queried for this patient: No Vital Signs: 12/26/20 13:10 12/26/20 14:21 Temperature 98.6 F 98.6 F Temperature Source Oral Pulse Rate 64 Pulse Rate [Right Brachial] 64 Respiratory Rate 18 18 Blood Pressure 104/59 L Blood Pressure [Right Arm] 104/59 L Blood Pressure Mean [Right Arm] 74 Blood Pressure Source [Right Arm] Automatic Cuff Blood Pressure Position [Right Arm] Sitting 02 Sat by Pulse Oximetry 98 Oxygen Delivery Method Room Air Orders (Tests/Meds): ED MEDICATIONS Discontinued Medications Generic Name Dose Route Start Last Admin Trade Name Freq PRN Reason Stop Dose Admin Methylprednisolone Sodium Succinate 125 mg 12/26/20 14:05 12/26/20 14:08 Methylprednisolone Sod Succ 125mg Vial IM 12/26/20 14:06 125 mg ONCE ONE Administration [facility] [place] - General Stated complaint: poison chel[place] Time Seen by Provider: 12/26/20 14:04 Mode of Arrival: Ambulatory Source of Information: Patient Limitations: No Limitations Description of Symptoms (Recalled from Triage Doc. by RN): PATIENT C/O POISON [place] ON RIGHT ANKLE AND GROIN X 2 DAYS HEENT Symptoms (Recalled from RN notes): No Resp Symptoms (Recalled from RN notes): No Skin Symptoms (Recalled from RN notes): Yes MS Symptoms (Recalled from RN notes): No Functional Status (Recalled from RN notes): wnl - History of Present Illness Provider Complaint: Patient states that she went camping over the weekend and she must have got into poison chelsea State that she has it all her groin and private area and on her legs State that it is starting to spread over her body so she came in to get a shot like she has to get to help it to clear up - Related Data Previous Rx's Medication Instructions Recorded predniSONE [Prednisone 10mg Tab 10 mg PO UD DOSE PK 6 Days #21 pack 12/26/20 Dose-Pack] Allergies Allergy/AdvReac Type Severity Reaction Status Date / Time No Known Allergies Allergy Verified 11/11/20 10:56 - Worker's Comp Is this a Worker's Comp case?: No [facility] History - Hepatitis A Screen Drug use history?: No High risk sexual behaviors?: No History of sexually transmitted infection?: No Currently employed?: No Childcare worker?: No Do you have indoor plumbing?: Yes Do you have electricity?: Yes Attestation statement:: This patient has been screened for Hepatitis A risk factors. I have reviewed the patient's past medical history: Yes Medical History: Denies:: Cancer, Diabetes Mellitus Type 1, Diabetes Mellitus Type 2, Hypertension, Internal Pacemaker, MRSA, Seizures Other Medical History: Denies: Blood Transfusion Reaction Other Surgeries: Yes: Appendectomy, Cholecystectomy, Other. No: Pacemaker Amputation: No Fractures: No Comment: right ovary removed, dermoid cyst - Social History Smoking Status: Never smoker Alcohol Intake: never Substance Use Type: denies use Occupational Status: other Housing: house Household Members: spouse, family Family Hx:: Coronary Artery Disease, Heart Attack, Hypertension JULIEN Polk
[2020-12-26 14:21] VITALS: BP 104/59; PULSE 64; RESP 18; TEMP 37; O2SAT 98
== END 2020-12-26 14:24 | disposition home or self-care (01) ==
PROVIDERS: Emergency Provider Nurse Practitioner; PCP Physician Assistant
DX: L23.7 Allergic contact dermatitis due to plants, except food (principal)
CPT/HCPCS: 96372; 99202; G0463

== ENCOUNTER → 2021-12-12 08:23 | Outpatient (CLI) | payer OTHER, SELFPAY ==
[2021-12-13 10:12] LABS: Rapid Plasma Reagin Ab Titer Non Reactive (NonRea<1:1)
[2021-12-27 08:18] LABS: Hep A Ab, IgM Negative; Hepatitis B Core Antibody IgM Negative; Hepatitis B Surface Antigen Negative; Hepatitis C Antibody <0.1
== END ==
PROVIDERS: PCP Physician Assistant; Visit Provider Obstetrics & Gynecology
DX: Z20.2 Contact with and (suspected) exposure to infections with a predominantly sexual mode of transmission (principal); Z11.4 Encounter for screening for human immunodeficiency virus [HIV]
CPT/HCPCS: 80074; 86592; 86703; G0432

== ENCOUNTER 2022-02-28 08:04 | Emergency (ER) | payer OTHER, SELFPAY ==
[2022-02-28 08:10] VITALS: BP 113/60; PULSE 73; RESP 19; TEMP 36.9; O2SAT 96; BMI 19.2
--- NOTE | 2022-02-28 08:23 | EXP.UTC ---
Discharge Plan Disposition Patient Disposition: Home, Self-Care Condition: Good Prescriptions Prescriptions: New azithromycin [Zithromax Z-Jimmy] 250 mg tablet 250 mg PO DAILY 6 Days Qty: 6 0RF Rx Instructions: start on day 2 of therapy methylprednisolone [Medrol (Jimmy)] 4 mg tablets,dose pack See Rx Instructions .Route .COMPLEX 6 Days Qty: 21 0RF Rx Instructions: taper pack; [id number]-oyibrqihe-MO [Bromfed DM] 2-30-10 mg/5 mL Syrup 10 ml PO Q4H PRN (Reason: Cough) Qty: 240 0RF Referrals Follow up/Referrals: Annalee Pack PA [Primary Care Provider] - See instructions Activity Restrictions/Add. Instructions Additional Instructions/Restrictions: *Monitor Temp, Over the counter Motrin or Tylenol as directed/as needed Tylenol every 4 hours and Motrin every 6 hours (as long as your family doctor has told you that you can take it) for fever or pain. and straight to ER if unable to lower temp less than 101.0 after medication given *Warm salt water gargles may help to soothe the throat *Throat Lozenges? *Warm fluids like tea with honey may help to soothe the throat? *Sleep elevated *Humidifier/Vaporizer Follow up IMMEDIATELY for new or worsening symptoms or no Noticeable improvement over the next 48-72 hours. 911 for difficulty breathing or swallowing Clinical Impressions Clinical Impression: Sinusitis Instructions Patient Instructions: [place] [facility] [place] General Stated complaint: drainage and sinus pain Mode of Arrival: Ambulatory Source of Information: Patient Limitations: No Limitations Time Seen by Provider: 02/28/22 08:23 Description of Symptoms (Recalled from Triage Doc. by RN): PATIENT C/O COUGH, SINUS DRAINAGE, AND SCRATCHY THROAT HEENT Symptoms (Recalled from RN notes): Yes Resp Symptoms (Recalled from RN notes): Yes Skin Symptoms (Recalled from RN notes): No MS Symptoms (Recalled from RN notes): No Functional Status (Recalled from RN notes): WNL History of Present Illness Provider Complaint: Patient states that she has been having sinus congestion, pressure and drainage in the back of her throat that is making her throat scratchy State that her son has been sick also States that today she was still not feeling well and having pressure behind her eyes so she came in Related Data Previous Rx's Medication Instructions Recorded azithromycin 250 mg tablet 250 mg PO DAILY 6 days #6 tabs 02/28/22 (Zithromax Z-Jimmy) ctrwemqypsmdpno-jrjflnpvbgevppv-JM 10 ml PO Q4H PRN Cough #240 mL 02/28/22 2 mg-30 mg-10 mg/5 mL oral syrup (Bromfed DM) methylprednisolone 4 mg tablets in See Rx Instructions .Route 02/28/22 a dose pack (Medrol (Jimmy)) .COMPLEX 6 days #21 tabs Allergies Allergy/AdvReac Type Severity Reaction Status Date / Time No Known Allergies Allergy Verified 12/11/21 13:06 Worker's Comp Is this a Worker's Comp case?: No [facility] Medical History (Updated 02/28/22 @ 08:32 by Manisha Phillips APRN) Abnormal EKG Chest pain Dyspnea Family history of heart disease Gastroesophageal reflux disease Palpitations Syncope Surgical History (Updated 02/28/22 @ 08:23 by Shamika Zapata RN) History of appendectomy History of section History of cholecystectomy History of tubal ligation Social History Smoking Status: Never smoker alcohol intake: never substance use type: denies use current occupational status: other Travel in the last 8 weeks: None household members: spouse and family housing: house current occupation: [employer] caffeine: Yes ROS Obtained: Yes All systems reviewed & no additional complaints except as documented and Yes Systems reviewed as appropriate & no additional complaints except as documented ENT Ears, Nose, Mouth, and Throat: Reports system reviewed and no additional complaints, except as documented, Reports as per HPI, Reports sinus pain, Reports sinus pressure and Re
[2022-02-28 08:35] VITALS: BP 113/60; PULSE 73; RESP 19; TEMP 36.9; O2SAT 96
== END 2022-02-28 08:38 | disposition home or self-care (01) ==
LOC: UTC 08:39
PROVIDERS: Emergency Provider Nurse Practitioner; PCP Physician Assistant
DX: J32.9 Chronic sinusitis, unspecified (principal)
CPT/HCPCS: 99212; G0463

== ENCOUNTER 2022-10-14 11:34 | Emergency (ER) | payer OTHER, SELFPAY ==
[2022-10-14 11:50] VITALS: BP 110/62; PULSE 82; RESP 18; TEMP 36.8; O2SAT 100; BMI 23.8
--- NOTE | 2022-10-14 11:52 | EXP.UTC ---
Discharge Plan Disposition Patient Disposition: Home, Self-Care Condition: Good Prescriptions Prescriptions: New phenazopyridine [Pyridium] 200 mg tablet 200 mg PO Q8H 2 Days Qty: 6 0RF ciprofloxacin HCl [Cipro] 500 mg tablet 500 mg PO BID 7 Days Qty: 14 0RF Referrals Follow up/Referrals: Provider,Referral, [Primary Care Provider] - See instructions Activity Restrictions/Add. Instructions Additional Instructions/Restrictions: Drink plenty of fluids. Take tylenol or ibuprofen for pain or fever. Take the medications as directed. Follow up with your regular doctor. GO TO THE ER FOR ANY WORSENING SYMPTOMS The pyridium will make your urine turn orange, this is an expected side effect. It will stain your clothes if it comes into contact with them. We will culture the urine. That will tell what bacteria is causing your infection and which antibiotics will treat it best. Sometimes the first antibiotic we prescribe turns out to not work against different bacteria. So, make sure you follow up within 3 days if you are not getting better. Clinical Impressions Clinical Impression: UTI (urinary tract infection) Instructions Patient Instructions: Urinary Tract Infection, Urine Culture, Phenazopyridine Discharge ED Provider: Bud Rolle [facility] General Stated complaint: Possible UTI Time Seen by Provider: 10/14/22 11:52 History of Present Illness Provider Complaint: She states that for the past 2 weeks she has had low back pain, dysuria, and urinary frequency. Related Data Previous Rx's Medication Instructions Recorded ciprofloxacin HCl 500 mg tablet 500 mg PO BID 7 days #14 tabs 10/14/22 (Cipro) phenazopyridine 200 mg tablet 200 mg PO Q8H 2 days #6 tabs 10/14/22 (Pyridium) Allergies Allergy/AdvReac Type Severity Reaction Status Date / Time No Known Allergies Allergy Verified 12/11/21 13:06 [facility] Disclaimer: The information contained in this section may have been updated after the patient was seen, as this information can be updated by other users. Medical History Abnormal EKG Chest pain Dyspnea Family history of heart disease Gastroesophageal reflux disease Palpitations Syncope Surgical History History of appendectomy History of section History of cholecystectomy History of tubal ligation Social History Smoking Status: Never smoker alcohol intake: never substance use type: denies use current occupational status: other Travel in the last 8 weeks: None household members: spouse and family housing: house current occupation: [employer] caffeine: Yes ROS Obtained: Yes All systems reviewed & no additional complaints except as documented Constitutional Constitutional: Reports system reviewed and no additional complaints, except as documented, Denies chills and Denies fever(s) Eyes Eyes: Denies eye discharge ENT Ears, Nose, Mouth, and Throat: Denies dysphagia, Denies sore throat and Denies throat swelling Cardiovascular Cardiovascular: Denies chest pain and Denies dyspnea Respiratory Respiratory: Denies chest congestion, Denies cough and Denies dyspnea Gastrointestinal Gastrointestingal: Denies abdominal pain, constipation, diarrhea, dysphagia, nausea or vomiting Genitourinary Female Genitourinary: Reports as per HPI, Reports dysuria, Reports sexual dysfunction, Reports urinary frequency, Denies urinary incontinence and Reports urinary hesitancy Musculoskeletal Musculoskeletal: Denies arthralgias and Reports back pain Integumentary/Breasts Skin/Breast: Denies rash Neurologic Neurologic: Denies paresthesias Allergic/Immunologic Allergic/Immunologic: Denies throat swelling Physical Exam General General appearance: alert and in no apparent distress Head Head exam: atraumatic and
[2022-10-14 12:24] VITALS: BP 110/62; PULSE 82; RESP 18; TEMP 36.8; O2SAT 100
[2022-10-14 12:30] LABS: Apearance,Urine Cloudy (Clear); Bilirubin,Urine Negative (Negative); Blood, Urine 2+ (Negative); Color,Urine Yellow (Yellow); Glucose,Urine (UA) Negative (Negative); Ketones,Urine Negative (Negative); Protein,Urine Negative (Negative); Specific Gravity, Urine 1.015 (1.005-1.030); UTC Leukocyte Esterase,Urine 2+ (Negative); UTC Nitrate,Urine Negative (Negative); Urobilinogen,Urine 0.2 EU/dl (0.2)
== END 2022-10-14 12:27 | disposition home or self-care (01) ==
PROVIDERS: Emergency Provider Nurse Practitioner Family
DX: N39.0 Urinary tract infection, site not specified (principal); M54.59 Other low back pain
CPT/HCPCS: 81003; 87086; 99212; 99214; G0463

== ENCOUNTER → 2022-11-09 08:26 | Outpatient (CLI) | payer OTHER, SELFPAY ==
[2022-11-09 08:30] VITALS: BMI 23.0
== END | disposition home or self-care (01) ==
PROVIDERS: Visit Provider Nurse Practitioner Family
DX: T63.441A Toxic effect of venom of bees, accidental (unintentional), initial encounter (principal)
CPT/HCPCS: 96372

== ENCOUNTER → 2022-12-06 08:57 | Outpatient (CLI) | payer OTHER, SELFPAY ==
--- NOTE | 2022-12-06 08:57 | US_ITS ---
FINAL REPORT TECHNIQUE: Ultrasound images of the kidneys and bladder were obtained. CLINICAL HISTORY: .rt flank pain-- microhemturia FINDINGS: The right kidney measures 9.5 cm in length. It is normal in echogenicity. There is no hydronephrosis. The left kidney measures 9.1 cm in length. It is normal in echogenicity. There is no hydronephrosis. The urinary bladder is unremarkable. IMPRESSION: No focal renal abnormality identified. Reviewed, Interpreted and Dictated by Kingston Waters III, MD Transcribed by Paula Love Authenticated and [facility]
--- NOTE | 2022-12-06 08:57 | US_ITS ---
PROCEDURE: US TRANSVAGINAL CLINICAL INDICATION: pelvic pain COMPARISON: No exams were available for comparison FINDINGS: UTERUS: 8cm x 5cmx 4cm with a combined endometrial thickness of 4.3mm. Uterus is anteverted with a heterogenous anterior myometrium possible adenomyosis scar anterior 4 mm nabothian cyst in the cervix. LEFT OVARY: 0vvb7ylj3.5cm with a volume of 4.2ml. 1.7cm follicle RIGHT OVARY: 2cmx [id number] with a volume of 1.9ml. Both ovaries are seen and appear normal. Doppler flow to both ovaries are seen. There is no fluid in the cul-de-sac. IMPRESSION: 1. Anteverted uterus, normal shape and size. Heterogenous anterior myometrium. 2. Ovaries appear normal 3. No fluid in the cul-de-sac Dictated by: Jeison Galdamez MD 12/06/2022 18:10 Jeison aGldamez MD in OV 12/06/2022 18:10
== END ==
LOC: RAD 08:57
PROVIDERS: PCP Obstetrics & Gynecology; Visit Provider Obstetrics & Gynecology
DX: R10.2 Pelvic and perineal pain (principal); M54.50 Low back pain, unspecified
CPT/HCPCS: 76770; 76830

== ENCOUNTER → 2023-05-21 10:23 | Outpatient (CLI) | payer OTHER, SELFPAY ==
[2023-05-21 10:56] LABS: Chloride 105 mmol/L (98-107); Sodium 138 mmol/L (136-145)
[2023-05-21 10:58] LABS: Alanine Aminotransferase 24 U/L (12-78); Aspartate Amino Transferase 31 U/L (14-36); Blood Urea Nitrogen 18 mg/dl (7-17); Estimated Glomerular Filt Rate 113 ml/min (>60); GFR (African American) 137 ML/MIN (>60)
[2023-05-21 10:59] LABS: Albumin Level 4.3 g/dl (3.5-5.0); Albumin/Globulin Ratio 1.8 (1.1-1.8); Alkaline Phosphatase 47 U/L (38-126); Bilirubin,Total 0.6 mg/dl (0.2-1.3); Calcium 8.7 mg/dl (8.4-10.2); Carbon Dioxide 28 mmol/L (22.0-30.0); Globulin 2.4 g/dL (1.3-3.2); Glucose 90 mg/dl (74-100); Total Protein,Serum 6.7 g/dl (6.3-8.2)
[2023-05-21 11:02] LABS: Basophils # 0.1 K/mm3 (0-0.2); Basophils % 0.7 % (0.1-2.0); Eosinophils # 0.2 K/mm3 (0.0-0.4); Eosinophils % 2.2 % (0.1-12.0); Hematocrit 39.1 % (37.0-47.0); Hemoglobin 13.1 g/dL (12.2-16.2); Lymphocytes # 2.3 K/mm3 (0.7-4.5); Lymphocytes % 33.1 % (10-50); Mean Corpuscular HGB Conc 33.4 g/dL (31.8-35.4); Mean Corpuscular Hemoglobin 30.9 pg (27.0-31.2); Mean Corpuscular Volume 92.4 fl (81-99); Mean Platelet Volume 7.5 fl (7.4-10.4); Monocytes # 0.4 K/mm3 (0.1-1.0); Monocytes % 5.4 % (1.7-9.3); Neutrophils % 58.7 % (37.0-80.0); Platelet Count 285 K/mm3 (142-424); Red Blood Count 4.23 M/mm3 (4.20-5.40); Red Cell Distribution Width 13.1 % (11.5-17.5); White Blood Count 6.9 K/mm3 (4.8-10.8)
[2023-05-21 11:17] LABS: HCG,Quantitative < 2 mIU/ml (0-5.42)
== END ==
LOC: LAB 10:24
PROVIDERS: PCP Nurse Practitioner Family; Visit Provider Obstetrics & Gynecology
DX: R10.2 Pelvic and perineal pain (principal)
CPT/HCPCS: 36415; 80053; 84702; 85025

== ENCOUNTER 2023-05-23 09:20 | Observation (INO) | payer OTHER, SELFPAY ==
[2023-05-20 14:02] VITALS: BMI 24.7
[2023-05-23] VITALS (23 sets, daily range): BP systolic 97–115; BP diastolic 49–64; PULSE 59–113; RESP 16–22; TEMP 36.3–43; O2SAT 94–100
--- NOTE | 2023-05-23 07:13 | P.PNANES_ITS ---
[facility] Disclaimer: The information contained in this section may have been updated after the patient was seen, as this information can be updated by other users. Medical History Dyspareunia Endometriosis Palpitations Pelvic pain Syncope Surgical History History of appendectomy History of section History of cholecystectomy History of tubal ligation Family History Other No significant family history Social History (Updated 05/23/23 @ 06:29 by Cassandra Dawkins RN) Smoking Status: Never smoker alcohol intake: never substance use type: denies use current occupational status: employed Travel in the last 8 weeks: None household members: spouse and family housing: house current occupation: [employer] caffeine: Yes [facility] Anesthesia Checklist Patient Identification Patient Identification: Arm Band and Family Structural Data Admitted From: Home Planned Operative Procedure/s: Total Lap Histerectomy Consent for Planned Operative Procedure(s) Verified: Yes Verified Documents: Surgical Consent NPO Status Verified Time NPO: 00:00 Additional verifications Patient : No Anesthesia Reactions: No Hx Blood Transfusions: No Blood Transfusion Reaction: No Cephalosporin Allergy: No Previous Colonoscopy: Yes Airway Assessment Mallampati Score:: Class II C-Spine Mobility Assessed: Yes TMJ Mobility Assessed: Yes Dentition: Good Dentition Neurological Assessment Level of Consciousness: Awake, Alert, Appropriate and Follows Commands Hx Seizures: No Numbness or tingling in extremities: No Anesthesia Plan Anesthesia Risk discussed: Yes ASA Class: I Anesthesia Type: General
--- NOTE | 2023-05-23 07:26 | EXP.HP ---
History of Present Illness *Admission Date: 05/23/23 *Reason for visit:: Pelvic pain, dyspareunia, endometriosis *History of present illness: Laurence is a 38 yo P2002 who presents to [facility] for scheduled surgery. She complains of RLQ/suprapubic pain that radiates to her right low back and down her right thigh. Pain started August-September. Pain is daily and waxes and wanes throughout the day. Heat offers some relief. Naproxen offers a little relief. She states she has also has pain with intercourse and abnormal uterine bleeding since about September. She has history of endometriosis and tubal ligation. She has tried OCPs in the past for endometriosis and it helped with the pain but caused daily headaches. She has tried Nexplanon and Mirena IUD but states she continued to bleed irregularly and felt weak. 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 She took Orilissa for 3 moths. She states the pain from endometriosis resolved but she developed anxiety, insomnia and mood swings. After stopping the Orilissa symptoms resolved but pelvic pain and dyspareunia returned. Pelvic ultrasound within normal limits. History of x 1, bilateral salpingectomy, cholecystectomy and appendectomy. She requests definitive surgical intervention with hysterectomy. [facility] Disclaimer: The information contained in this section may have been updated after the patient was seen, as this information can be updated by other users. Medical History Dyspareunia Endometriosis Palpitations Pelvic pain Syncope Surgical History History of appendectomy History of section History of cholecystectomy History of tubal ligation Family History Other No significant family history Social History Smoking Status: Never smoker alcohol intake: never substance use type: denies use current occupational status: employed Travel in the last 8 weeks: None household members: spouse and family housing: house current occupation: [employer] caffeine: Yes Review of Systems Review of Systems Review of systems:: pertinent systems reviewed and negative unless documented below *Genitourinary Genitourinary: Reports dyspareunia and Reports pelvic pain Meds Home Medications and Allergies Home Medications Medication Instructions Recorded Confirmed Type No Known Home Medications 05/20/23 05/23/23 History New Prescriptions to Start Prescriptions: Allergies Allergy/AdvReac Type Severity Reaction Status Date / Time adhesive tape Allergy Blister Verified 05/23/23 06:19 Exam Data for Last 24 hours Vital signs and Labs for Last 24 Hours: Temp Pulse Resp BP Pulse Ox O2 Del Method 97.8 F 78 18 103/56 L 96 Room Air 05/23/23 06:19 05/23/23 06:19 05/23/23 06:19 05/23/23 06:19 05/23/23 06:19 05/23/23 06:19 I & O for Last 24 hours: Intake & Output 05/20/23 05/21/23 05/22/23 05/23/23 23:59 23:59 23:59 23:59 Weight 140 lb 0.002 oz Constitutional Constitutional: no acute distress and cooperative *Routine HEENT Exam Head: Present normocephalic and atraumatic Eye: Absent conjunctivae pink ENT: Present mucous membranes moist *Routine Neck Exam Neck: Present full ROM *Routine Respiratory Exam Respiratory: Present CTA bilaterally and normal respiratory effort *Routine Cardiovascular Exam Cardiovascular: Present RRR *Routine Abdominal Exam Abdominal: Present soft; Absent tenderness or distended *Routine Rectal Exam Rectal:: deferred *Routine Genitalia Exam Genitalia:: normal female *Routine Extremities Exam Extremities: Present full ROM; Absent edema or calf tenderness *Routine Neurological Exam Neurological: Present alert, oriented X3 and moving all extrem
--- NOTE | 2023-05-23 08:50 | SUR.OPER ---
pt family updated by Lencho Rachel at [id number]
--- NOTE | 2023-05-23 09:54 | EXP.ANES.I ---
[facility] Anesthesia Record Part I Anesthesia Record I Intake, IV Amount: 1,000 Hydration: Adequate Estimated blood loss (mL): 150 Urine output (mL): 0 Blood Products used (#): none Blood Pressure: 115/62 SaO2: 96 Pulse Rate: 113 Airway Patency: Patent Respiratory Rate: 22 Temperature: 98.2 F Patient is:: Drowsy and Stable
--- NOTE | 2023-05-23 10:15 | EXP.OP.NOTE ---
Date of procedure: 05/23/23 Pre-op Diagnosis:: 1. Chronic pelvic pain 2. Dyspareunia 3. Endometriosis Post-op Diagnosis:: 1. Chronic pelvic pain 2. Dyspareunia 3. Endometriosis of pelvic peritoneum, stage 1 Procedure performed:: Total Laparoscopic Hysterectomy, right oophorectomy Surgeon:: Beth Hopper DO Statistical Financial Analyst(s):: Mary Kay Saleem DO AQUATICS LIFEGUARD:: Other (Fox Mac CRNA) Anesthesia: GETA Estimated blood loss (mL): 150 Clinical Note:: Laurence is a 38 yo P2002 who presents to [facility] for scheduled surgery. She complains of RLQ/suprapubic pain that radiates to her right low back and down her right thigh. Pain started August-September. Pain is daily and waxes and wanes throughout the day. Heat offers some relief. Naproxen offers a little relief. She states she has also has pain with intercourse and abnormal uterine bleeding since about September. She has history of endometriosis and tubal ligation. She has tried OCPs in the past for endometriosis and it helped with the pain but caused daily headaches. She has tried Nexplanon and Mirena IUD but states she continued to bleed irregularly and felt weak. 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 She took Orilissa for 3 moths. She states the pain from endometriosis resolved but she developed anxiety, insomnia and mood swings. After stopping the Orilissa symptoms resolved but pelvic pain and dyspareunia returned. Pelvic ultrasound within normal limits. History of x 1, bilateral salpingectomy, cholecystectomy and appendectomy. She requests definitive surgical intervention with hysterectomy. Operative findings:: 1. On bimanual exam, uterus normal size and shape, midposition, freely moveable. No adnexal masses palpated 2. On laparoscopic exam, liver, omentum and bowel grossly normal. Uterus and bilateral ovaries grossly normal. Surgically absent fallopian tubes. a few dark powder burn lesions noted on pelvic side valencia under round ligaments. Dark lesions noted near left ureter and near bladder on left. 3. Bilateral ureters identified with peristalsis noted Operative note:: Discussed risks, benefits, alternatives, expectations and possible complications of surgery. All questions addressed and answered. Patient wished to proceed with surgery. Patient was wheeled back to the operating room and placed under general anesthesia without difficulty. She received 1 gram of Ancef. She was placed in the dorsal lithotomy position. She was prepped and draped in normal sterile fashion. Beginning at the vagina, a calderon catheter was inserted into the bladder and draining clear urine prior to the start of the procedure. Weighted Auvuard was placed in the vaginal vault. Anterior lip of the cervix was grasped with single tooth tenaculum. Uterus sounded to 9. Arley dilators were used to dilate the cervix. Advincula uterine manipulator was inserted into the cervix with the colpotomy cup covering the cervix. Single tooth tenaculum was removed prior to complete placement of colpotomy cup over cervix. Uterine balloon was filled with 10cc of air. Vaginal balloon was filled with 60 cc of air. Weighted Auvard was removed. Attention was then turned to the abdomen. Skin just below the umbilicus was injected with 0.5% marcaine. A 1.5 cm infraumbilical incision was made. Veress needle was tested and inserted intrabdominally. Opening pressure was 7 mm Hg. The peritoneal cavity was insulflated to 15 mm Hg. Laparoscope within 11 mm blunt trocar was inserted intrabdominally under direct visualization. Obturator and scope were removed. Laparoscope was inserted into the trocar sleeve. Abdomen and pelvis was viewed in its entirety. Bilateral ureters were identified. Examination of the peritoneal cavity revealed no signs of injury from entry and normal anatomic structures. See findings above. Pictures were taken. Bowel was swept cephalad with blunt probe. LLQ port site was transilluminated and inje
--- NOTE | 2023-05-23 15:30 | PC.NURSE ---
Pt ambulated to rest room at this time and got into own clothing. voided adequate amount and done well with ambulation. reassessment also completed once patient got back to bed. lungs cta and bowel sounds activex4. pt is belching. 3 lap sites noted with dermabond. no drainage or bleeding. abd soft and not distended. iv infusing without difficulty. pt requesting to leave sucds off. s/o at bedside. no needs
--- NOTE | 2023-05-23 19:01 | PC.NURSE ---
report to zoe bang RN
[2023-05-24 00:10] VITALS: BP 97/44; PULSE 86; RESP 17; TEMP 36.8; O2SAT 97
[2023-05-24 03:40] VITALS: BP 106/49; PULSE 68; RESP 17; TEMP 36.9; O2SAT 96
--- NOTE | 2023-05-24 03:45 | PC.NURSE ---
Addendum entered by Candida Terrazas RN 05/24/23 03:49: Vital signs have remained stable all shift. Original Note: reassessment done at this time. pt helped to the bathroom and ambulated excellent. pt has complaints of mild pain only rating 1/10, medicated per mar. reports minimal bleeding with no clots. requests a break from the skuds at this time. all three incisions clean dry and intact, no drainage noted to any. bowel sounds active throughout, and lungs are clear throughout. pts iv saline locked at this time, pts intake and output has been adequate all night. no edema noted and heart sounds are normal. no needs at this time, cb within reach.
[2023-05-24 07:27] LABS: Chloride 108 mmol/L (98-107)
[2023-05-24 07:28] LABS: Potassium 3.7 mmoL/L (3.5-5.1); Sodium 137 mmol/L (136-145)
[2023-05-24 07:30] LABS: Alanine Aminotransferase 25 U/L (12-78); Albumin Level 3.4 g/dl (3.5-5.0); Albumin/Globulin Ratio 1.5 (1.1-1.8); Alkaline Phosphatase 46 U/L (38-126); Anion Gap 6.7 mEq/L (5-15); Aspartate Amino Transferase 33 U/L (14-36); Bilirubin,Total 0.5 mg/dl (0.2-1.3); Blood Urea Nitrogen 15 mg/dl (7-17); Carbon Dioxide 26 mmol/L (22.0-30.0); Creatinine Clearance Estimated 111 mL/min (50-200); Estimated Glomerular Filt Rate 95 ml/min (>60); GFR (African American) 115 ML/MIN (>60); Globulin 2.2 g/dL (1.3-3.2); Total Protein,Serum 5.6 g/dl (6.3-8.2)
[2023-05-24 07:31] LABS: Basophils % 0.2 % (0.1-2.0); Calcium 7.8 mg/dl (8.4-10.2); Eosinophils # 0.1 K/mm3 (0.0-0.4); Eosinophils % 0.5 % (0.1-12.0); Glucose 98 mg/dl (74-100); Hematocrit 36.3 % (37.0-47.0); Hemoglobin 12.1 g/dL (12.2-16.2); Lymphocytes # 2.8 K/mm3 (0.7-4.5); Lymphocytes % 23.3 % (10-50); Mean Corpuscular HGB Conc 33.3 g/dL (31.8-35.4); Mean Corpuscular Hemoglobin 31.1 pg (27.0-31.2); Mean Corpuscular Volume 93.4 fl (81-99); Mean Platelet Volume 7.6 fl (7.4-10.4); Monocytes # 0.6 K/mm3 (0.1-1.0); Monocytes % 4.6 % (1.7-9.3); Neutrophils # 8.6 K/mm3 (1.8-7.8); Neutrophils % 71.4 % (37.0-80.0); Platelet Count 249 K/mm3 (142-424); Red Blood Count 3.89 M/mm3 (4.20-5.40); Red Cell Distribution Width 13.3 % (11.5-17.5); White Blood Count 12.1 K/mm3 (4.8-10.8)
[2023-05-24 07:33] VITALS: BP 99/56; PULSE 76; RESP 18; TEMP 36.8; O2SAT 100
--- NOTE | 2023-05-24 08:07 | EXP.ANES.II ---
[facility] Anesthesia Record Part II Anesthesia Record Part II Discharge Time: 10:27 Destination: Obstetric PACU nurse assessment reviewed?: Yes Patient Condition:: Good Anesthesia Complications:: None Swallowing reflex intact?: Yes Airway Patency: Patent Cyanosis?: No Blood Pressure: 108/57 SaO2: 94 Respiratory Rate: 22 Pulse Rate: 82 Temperature: 98.1 F Mental Status: Alert & Oriented Pain level:: 3 Nausea and/or vomitting:: None Intake, IV Amount: 0 Hydration: Adequate
[2023-05-24 08:09] VITALS: BP 108/57; PULSE 82; RESP 22; TEMP 36.7; O2SAT 94
--- NOTE | 2023-05-24 08:34 | EXP.ANES.I ---
[facility] Anesthesia Record Part I Anesthesia Record I Intake, IV Amount: 800 Hydration: Adequate Estimated blood loss (mL): 15 Urine output (mL): 1,000 Blood Products used (#): none Blood Pressure: 147/79 SaO2: 97 Pulse Rate: 68 Airway Patency: Patent Respiratory Rate: 24 Temperature: 97 F Patient is:: Drowsy and Stable Stable to PACU at:: 08:20
[2023-05-24 08:36] VITALS: BP 147/79; PULSE 68; RESP 24; TEMP 36.1; O2SAT 97
--- NOTE | 2023-05-24 08:41 | EXP.DC.SUM ---
General Admission date:: 05/23/23 Discharge date: 05/24/23 HPI HPI HPI: POD # 1 s/p TLH, right oophorectomy Resting comfortably in bed. Pain is controlled with medication. She is voiding without difficulty and passing flatus. Tolerating regular diet. Denies fever/chills, chest pain and shortness of breath. No lower extremity swelling. Ambulating well ad king. Hospital Course Hospital Course Hospital Course: Laurence is a 38 yo P2002 who presents to [facility] for scheduled surgery. She complains of RLQ/suprapubic pain that radiates to her right low back and down her right thigh. Pain started August-September. Pain is daily and waxes and wanes throughout the day. Heat offers some relief. Naproxen offers a little relief. She states she has also has pain with intercourse and abnormal uterine bleeding since about September. She has history of endometriosis and tubal ligation. She has tried OCPs in the past for endometriosis and it helped with the pain but caused daily headaches. She has tried Nexplanon and Mirena IUD but states she continued to bleed irregularly and felt weak. 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 She took Orilissa for 3 moths. She states the pain from endometriosis resolved but she developed anxiety, insomnia and mood swings. After stopping the Orilissa symptoms resolved but pelvic pain and dyspareunia returned. Pelvic ultrasound within normal limits. History of x 1, bilateral salpingectomy, cholecystectomy and appendectomy. She requests definitive surgical intervention with hysterectomy. She underwent TLH, right oophorectomy on 05/23/23. She did well postoperatively. Pain is controlled with PO medication. She is voiding without difficulty and passing flatus. Tolerating regular diet. Denies fever/chills, chest pain and shortness of breath. No lower extremity swelling. Ambulating well ad king. Vital signs stable, afebrile. Heart regular rate and rhythm. Lungs clear to auscultation. Normal hospital course. Discharged home on POD # 1 with instructions to follow-up in the office in 2 weeks. Exam Data for Last 24 hours Vital signs and Labs for Last 24 Hours: Temp Pulse Resp BP Pulse Ox O2 Del Method 97 F L 68 24 147/79 H 100 Room Air 05/24/23 08:36 05/24/23 08:36 05/24/23 08:36 05/24/23 08:36 05/24/23 07:33 05/24/23 07:33 Laboratory Results - last 24 hr 05/24/23 07:08: WBC 12.1 H D, RBC 3.89 L, Hgb 12.1 L, Hct 36.3 L, MCV 93.4, MCH 31.1, MCHC 33.3, RDW 13.3, Plt Count 249, MPV 7.6, Neut % (Auto) 71.4, Lymph % (Auto) 23.3, Licking % (Auto) 4.6, Eos % (Auto) 0.5, Baso % (Auto) 0.2, Neut # (Auto) 8.6 H, Lymph # (Auto) 2.8, Licking # (Auto) 0.6, Eos # (Auto) 0.1, Baso # (Auto) 0.0, Sodium 137, Potassium 3.7, Chloride 108 H, Carbon Dioxide 26, Anion Gap 6.7, BUN 15, Creatinine 0.70, Estimated Creat Clear 111, Estimated GFR 95, Est GFR ( Amer) 115, Glucose 98, Calcium 7.8 L, Total Bilirubin 0.5, AST 33, ALT 25, Alkaline Phosphatase 46, Total Protein 5.6 L, Albumin 3.4 L, Globulin 2.2, Albumin/Globulin Ratio 1.5 I & O for Last 24 hours: Intake & Output 05/21/23 05/22/23 05/23/23 05/24/23 23:59 23:59 23:59 23:59 Intake Total 1000 / 1000 800 / 800 Balance 1000 / 1000 800 / 800 Constitutional Constitutional: no acute distress and cooperative *Routine HEENT Exam Head: Present normocephalic and atraumatic Eye: Absent conjunctivae pink ENT: Present mucous membranes moist and dentition normal *Routine Neck Exam Neck: Present full ROM *Routine Respiratory Exam Respiratory: Present CTA bilaterally and normal respiratory effort *Routine Cardiovascular Exam Cardiovascular: Present RRR *Routine Abdominal Exam Abdominal: Present soft, normoactive bowel sounds and tenderness (appropriate postop tenderness to palpation); Absent distended, rebound or guarding *Routine Rectal Exam Patient deferred: visual exam *Routine Exam Patient deferred: external exam *Ro
== END 2023-05-24 09:35 | disposition home or self-care (01) ==
LOC: OB 12:43
PROVIDERS: Admitting Provider Obstetrics & Gynecology; PCP Obstetrics & Gynecology; Visit Provider Obstetrics & Gynecology
PROC: (CPT 58552; principal; 2023-05-23 07:30)
DX: R10.2 Pelvic and perineal pain (principal); G89.29 Other chronic pain; N94.10 Unspecified dyspareunia
CPT/HCPCS: 58552; 36415; 80053; 85025; 96374; G0378; J2405

== ENCOUNTER 2024-02-27 10:47 | Outpatient (CLI) | payer OTHER, SELFPAY ==
--- NOTE | 2024-02-27 10:48 | CT_ITS ---
FINAL REPORT TECHNIQUE: Thin section axial CT images of the temporal bones were obtained. Coronal reformatted images were also obtained.This study was performed with techniques to keep radiation doses as low as reasonably achievable (ALARA). Individualized dose reduction techniques using automated exposure control or adjustment of mA and/or kV according to the patient''s size were employed. CLINICAL HISTORY: H92.01 - Otalgia, right ear FINDINGS: Right temporal bone: The internal auditory canal has an unremarkable appearance. The inner ear structures are unremarkable. The external auditory canal has an unremarkable appearance. No abnormality is identified of the middle ear cavity. The ossicles are intact. The mastoid air cells and mastoid antrum have an unremarkable appearance. No bony mass is identified. Left temporal bone:The internal auditory canal has an unremarkable appearance. The inner ear structures are unremarkable. The external auditory canal has an unremarkable appearance. No abnormality is identified of the middle ear cavity. The ossicles are intact. The mastoid air cells and mastoid antrum have an unremarkable appearance. No bony mass is identified. IMPRESSION: Unremarkable temporal bones. Reviewed, Interpreted and Dictated by Kingston Waters III, MD Transcribed by Alia Flores Authenticated and [facility]
== END 2024-02-27 23:59 | disposition home or self-care (01) ==
LOC: RAD 10:48
PROVIDERS: PCP Nurse Practitioner; Visit Provider Nurse Practitioner
DX: H92.01 Otalgia, right ear (principal); H93.8X1 Other specified disorders of right ear; H93.11 Tinnitus, right ear; H91.91 Unspecified hearing loss, right ear
CPT/HCPCS: 70480

== ENCOUNTER 2024-07-01 11:39 | Outpatient (CLI) | payer OTHER, SELFPAY ==
[2024-07-01 11:48] LABS: MANUAL DIFFERENTIAL MANUAL DIFFERENTIAL (MANUAL DIFF)
[2024-07-01 12:06] LABS: Basophils % 0.5 % (0.1-2.0); Eosinophils # 0.2 K/mm3 (0.0-0.4); Eosinophils % 1.9 % (0.1-12.0); Hematocrit 39.8 % (37.0-47.0); Hemoglobin 13.5 g/dL (12.2-16.2); Lymphocytes # 2.8 K/mm3 (0.7-4.5); Lymphocytes % 33.2 % (10-50); Mean Corpuscular HGB Conc 33.9 g/dL (31.8-35.4); Mean Corpuscular Hemoglobin 30.9 pg (27.0-31.2); Mean Corpuscular Volume 91.1 fl (81-99); Mean Platelet Volume 9.6 fl (7.4-10.4); Monocytes # 0.6 K/mm3 (0.1-1.0); Monocytes % 7.7 % (1.7-9.3); Neutrophils # 4.7 K/mm3 (1.8-7.8); Neutrophils % 55.7 % (37.0-80.0); Platelet Count 271 K/mm3 (142-424); Red Blood Count 4.37 M/mm3 (4.20-5.40); Red Cell Distribution Width 11.6 % (11.5-17.5); White Blood Count 8.4 K/mm3 (4.8-10.8)
[2024-07-01 12:20] LABS: Eosinophils % 2 % (0-3); Lymphocytes % 38 % (10-50); Monocytes % 4 % (2-9); Neutrophils % 56 % (42-76); Platelet Estimate Normal; RBC Morphology Normal; Total Cells Counted 100
[2024-07-01 12:32] LABS: Chloride 102 mmol/L (98-107); Potassium 4.3 mmoL/L (3.5-5.1); Sodium 138 mmol/L (136-145)
[2024-07-01 12:35] LABS: Anion Gap 11.3 mEq/L (5-15); Blood Urea Nitrogen 19 mg/dl (7-17); Calcium 9.5 mg/dl (8.4-10.2); Carbon Dioxide 29 mmol/L (22.0-30.0); Estimated Glomerular Filt Rate 94 ml/min (>60); GFR (African American) 114 ML/MIN (>60); Glucose 81 mg/dl (74-100)
[2024-07-01 12:52] LABS: Free T4 (Free Thyroxine) 0.92 ng/dl (0.78-2.19)
[2024-07-01 13:06] LABS: Thyroid Stimulating Hormone 1.65 uIU/mL (0.465-4.68)
[2024-07-01 14:05] LABS: Vitamin B12 266 pg/mL (239-931)
[2024-07-09 10:10] LABS: 1,25 Dihydroxy Vitamin D 57 pg/mL (.); 1,25-Dihydroxy, Vitamin D-2 <10 pg/mL (.); 1,25-Dihydroxy, Vitamin D-3 57 pg/mL (.)
== END 2024-07-01 23:59 | disposition home or self-care (01) ==
LOC: LAB 11:39
PROVIDERS: Visit Provider Nurse Practitioner
DX: R53.83 Other fatigue (principal)
CPT/HCPCS: 36415; 80048; 82607; 82652; 84439; 84443; 85007; 85014; 85018; 85048; 85049

== ENCOUNTER 2024-08-10 19:17 | Outpatient (CLI) | payer OTHER, SELFPAY ==
[2024-08-10 20:54] LABS: Influenza A, PCR Not Detected (NotDetected); Influenza B, PCR Not Detected (NotDetected)
[2024-08-10 22:26] LABS: Coronavirus 19, PCR Detected (NotDetected)
== END 2024-08-10 23:59 | disposition home or self-care (01) ==
LOC: LAB.DROPOF 08-12 10:19
PROVIDERS: PCP Student in an Organized Health Care Education/Training Program; Visit Provider Student in an Organized Health Care Education/Training Program
DX: R50.9 Fever, unspecified (principal); U07.1 COVID-19
CPT/HCPCS: 87636

== ENCOUNTER 2024-09-01 16:01 | Outpatient (CLI) | payer OTHER, SELFPAY ==
[2024-09-01 16:04] LABS: Basophils % 0.3 % (0.1-2.0); Eosinophils # 0.1 K/mm3 (0.0-0.4); Eosinophils % 1.3 % (0.1-12.0); Hematocrit 37.2 % (37.0-47.0); Hemoglobin 12.7 g/dL (12.2-16.2); Lymphocytes # 2.3 K/mm3 (0.7-4.5); Lymphocytes % 24.7 % (10-50); Mean Corpuscular HGB Conc 34.1 g/dL (31.8-35.4); Mean Corpuscular Hemoglobin 30.4 pg (27.0-31.2); Mean Platelet Volume 9.9 fl (7.4-10.4); Monocytes # 0.7 K/mm3 (0.1-1.0); Monocytes % 7.7 % (1.7-9.3); Neutrophils % 65.3 % (37.0-80.0); Platelet Count 343 K/mm3 (142-424); Red Blood Count 4.18 M/mm3 (4.20-5.40); Red Cell Distribution Width 12.2 % (11.5-17.5); White Blood Count 9.2 K/mm3 (4.8-10.8)
[2024-09-01 16:30] LABS: Erythrocyte Sedimentation Rate 1 mm/hr (0-20)
[2024-09-01 18:25] LABS: Albumin Level 4.4 g/dl (3.5-5.0); Chloride 102 mmol/L (98-107); Potassium 4.2 mmoL/L (3.5-5.1); Sodium 135 mmol/L (136-145)
[2024-09-01 18:27] LABS: Blood Urea Nitrogen 16 mg/dl (7-17); Estimated Glomerular Filt Rate 94 ml/min (>60); GFR (African American) 114 ML/MIN (>60)
[2024-09-01 18:28] LABS: Alanine Aminotransferase 20 U/L (12-78); Albumin/Globulin Ratio 1.9 (1.1-1.8); Alkaline Phosphatase 71 U/L (38-126); Anion Gap 11.2 mEq/L (5-15); Aspartate Amino Transferase 24 U/L (14-36); Bilirubin,Total 0.4 mg/dl (0.2-1.3); Calcium 8.9 mg/dl (8.4-10.2); Carbon Dioxide 26 mmol/L (22.0-30.0); Globulin 2.3 g/dL (1.3-3.2); Glucose 86 mg/dl (74-100); Total Protein,Serum 6.7 g/dl (6.3-8.2)
[2024-09-01 18:33] LABS: C-Reactive Protein 5.6 mg/L (0-4)
== END 2024-09-01 23:59 | disposition home or self-care (01) ==
LOC: LAB.DROPOF 16:01
PROVIDERS: PCP Internal Medicine; Visit Provider Internal Medicine
DX: R60.0 Localized edema (principal); R23.3 Spontaneous ecchymoses
CPT/HCPCS: 80053; 85025; 85651; 86140

== ENCOUNTER 2024-09-03 10:04 | Outpatient (CLI) | payer OTHER, SELFPAY ==
[2024-09-03 09:38] LABS: Microscopic, Urine URINE MICROSCOPIC (MICROSCOPIC)
[2024-09-03 10:51] LABS: Appearance,Urine Clear (Clear); Color,Urine Yellow (Yellow); PH,Urine 5.5 (5.0-8.5); Specific Gravity, Urine >= 1.030 (1.005-1.030)
[2024-09-03 10:52] LABS: Bacteria,Urine Trace /lpf; Bilirubin,Urine Negative (Negative); Blood, Urine Trace (Negative); Glucose,Urine (UA) Negative (Negative); Ketones,Urine Negative (Negative); Leukocyte Esterase,Urine Negative (Negative); Nitrate,Urine Negative (Negative); Protein,Urine Negative (Negative); RBC,Urine Occasional #/hpf (0-3); Urobilinogen,Urine 0.2 EU/dl (0.2); WBC,Urine Occasional #/hpf (0-3)
== END 2024-09-03 23:59 | disposition home or self-care (01) ==
LOC: LAB.DROPOF 10:04
PROVIDERS: PCP Internal Medicine; Visit Provider Internal Medicine
DX: R23.3 Spontaneous ecchymoses (principal); R60.0 Localized edema
CPT/HCPCS: 81001

== ENCOUNTER 2024-09-03 13:26 | Outpatient (CLI) | payer OTHER, SELFPAY ==
--- NOTE | 2024-09-03 13:38 | XR_ITS ---
FINAL REPORT TECHNIQUE: Chest PA & Lateral CLINICAL HISTORY: SOA and cough patient started having COVID symptoms on 08/10. patient had a rash appear on both legs on 08/23. patient started to have edema in both legs within the past couple of days. COMPARISON: None FINDINGS: 2 views of the chest were performed. The heart size is normal. The mediastinum is within normal limits. There is no acute cardiopulmonary process. There are no pleural effusions. There is no pneumothorax. The bony thorax appears intact. IMPRESSION: No acute cardiopulmonary process. Reviewed, Interpreted and Dictated by Pavan Hernandez MD Transcribed by Paula Love Authenticated and [facility]
[2024-09-03 13:59] LABS: INR 0.94 (0.9-1.1); Prothrombin Time 10.6 seconds (10.1-12.5)
[2024-09-03 14:13] LABS: Erythrocyte Sedimentation Rate 17 mm/hr (0-20)
[2024-09-04 15:32] LABS: Complement C3 162 mg/dL (82-167); Cytoplasmic (C-ANCA) <1:20 titer (Neg:<1:20); Perinuclear (P-ANCA) <1:20 titer (Neg:<1:20); RA Latex Turbid. <10.0 IU/mL (<14.0)
[2024-09-07 10:22] LABS: Antinuclear Antibodies, IFA Positive (.)
== END 2024-09-03 23:59 | disposition home or self-care (01) ==
LOC: LAB 13:26
PROVIDERS: PCP Internal Medicine; Visit Provider Internal Medicine
DX: R60.0 Localized edema (principal); R23.3 Spontaneous ecchymoses; I77.6 Arteritis, unspecified
CPT/HCPCS: 36415; 71046; 84550; 85610; 85651; 86036; 86038; 86161; 86431

== ENCOUNTER 2024-10-02 07:32 | Outpatient (CLI) | payer OTHER, SELFPAY ==
--- NOTE | 2024-10-02 07:39 | CT_ITS ---
FINAL REPORT CLINICAL HISTORY: LOWER EXTREMITY EDEMA SOA PT HAD COVID BACK IN JUL 2024 PT STATED LOWER EXTREMITY EDEMA HAS BEEN PRESENT SINCE HAVING COVID FINDINGS: CT CHEST without contrast COMPARISON: None . TECHNIQUE: Axial CT without contrast No acute lung disease is present . There is evidence of old calcified granulomatous disease. The lungs are otherwise clear. The heart is normal in size. No pleural or pericardial effusion is seen . No adenopathy or mass lesion is present . IMPRESSION: No evidence of active cardiopulmonary disease or mass. This study was performed using automated techniques to achieve radiation exposure as low as reasonably achievable Reviewed, Interpreted and Dictated by Maren De La Garza MD Transcribed by Tish Mazariegos Authenticated and [facility]
== END 2024-10-02 23:59 | disposition home or self-care (01) ==
LOC: RAD 07:35
PROVIDERS: PCP Internal Medicine; Visit Provider Student in an Organized Health Care Education/Training Program
DX: R60.0 Localized edema (principal)
CPT/HCPCS: 71250

== ENCOUNTER 2024-10-05 07:40 | Outpatient (CLI) | payer OTHER, SELFPAY ==
--- NOTE | 2024-10-05 | CA_ITS ---
FINAL REPORT TECHNIQUE: Ultrasound images of the deep venous system were obtained from the left groin to the calf veins. CLINICAL HISTORY: LLE edema started 08/30/24, pt dx with leukopenia vasculitis. Pt unable to walk without pain. COMPARISON: None FINDINGS: Degeneration there is visible thrombus in the peroneal vein which is noncompressible. The remainder of the left lower extremity venous system is unremarkable. IMPRESSION: Visible thrombus peroneal vein. Reviewed, Interpreted and Dictated by Pavan Hernandez MD Transcribed by Ilene Ayala Authenticated and [facility]
== END 2024-10-05 23:59 | disposition home or self-care (01) ==
LOC: RT 07:41
PROVIDERS: PCP Internal Medicine; Visit Provider Student in an Organized Health Care Education/Training Program
DX: I82.452 Acute embolism and thrombosis of left peroneal vein (principal); R60.0 Localized edema; I77.6 Arteritis, unspecified
CPT/HCPCS: 93971

== ENCOUNTER 2024-10-13 06:39 | Outpatient (CLI) | payer OTHER, SELFPAY ==
--- NOTE | 2024-10-13 06:41 | MR_ITS ---
FINAL REPORT CLINICAL HISTORY: INFLAMMATORY POLYARTHROPATHY. SWELLING, RASH AND ENTIRE ANKLE PAIN. NO INJURY AND TRAUMA. SYMPTOMS [id number]. FINDINGS: Multiplanar MR imaging of the left ankle was performed without contrast. The bony structures are intact without evidence of fracture, bone bruise or marrow edema. No osteochondral lesion is identified. The ligaments are intact without evidence of injury. The flexor and extensor tendons are intact. The posterior plantar aponeurosis is intact. No significant joint effusion is seen. The musculature is intact. There is diffuse soft tissue edema about the ankle. IMPRESSION: Diffuse soft tissue edema. Otherwise, unremarkable exam. Reviewed, Interpreted and Dictated by Pavan Hernandez MD Transcribed by Alia Flores Authenticated and [facility]
== END 2024-10-13 23:59 | disposition home or self-care (01) ==
LOC: RAD 06:40
PROVIDERS: PCP Internal Medicine; Visit Provider Student in an Organized Health Care Education/Training Program
DX: M06.4 Inflammatory polyarthropathy (principal); R60.0 Localized edema
CPT/HCPCS: 73721

== ENCOUNTER 2024-10-15 15:08 | Outpatient (CLI) | payer OTHER, SELFPAY ==
[2024-10-15 15:52] LABS: INR 0.96 (0.9-1.1); Prothrombin Time 10.8 seconds (10.1-12.5)
[2024-10-16 15:10] LABS: Anti-Cardio Antibody IgM <9 MPL U/mL (0-12); Anti-Cardiolipin Antibody IgG <9 GPL U/mL (0-14)
[2024-10-16 16:36] LABS: Beta-2 Glycoprotein I Ab, IgG <9 (0-20); Beta-2 Glycoprotein I Ab, IgM <9 (0-32)
[2024-10-17 13:13] LABS: Anti-Thrombin III Antigen 114 % (72-124); Antithrombin Activity 143 % (75-135); Protein C Functional 117 % (73-180); Protein S Functional 105 % (63-140)
== END 2024-10-15 23:59 | disposition home or self-care (01) ==
LOC: LAB 15:08
PROVIDERS: PCP Internal Medicine; Visit Provider Internal Medicine Medical Oncology
DX: I82.622 Acute embolism and thrombosis of deep veins of left upper extremity (principal); Z86.718 Personal history of other venous thrombosis and embolism
CPT/HCPCS: 81240; 81241; 85300; 85301; 85302; 85306; 85610; 86146; 86147

== ENCOUNTER 2024-11-10 14:08 | Outpatient (CLI) | payer OTHER, SELFPAY ==
[2024-11-10 16:19] LABS: Coronavirus 19, PCR Not Detected (NotDetected); Human Rhinovirus Not Detected (NotDetected); Influenza A, PCR Not Detected (NotDetected); Influenza B, PCR Not Detected (NotDetected); Respiratory Syncytial Virus Not Detected (NotDetected)
== END 2024-11-10 23:59 | disposition home or self-care (01) ==
LOC: LAB 14:08
PROVIDERS: PCP Internal Medicine; Visit Provider Nurse Practitioner Family
DX: R50.9 Fever, unspecified (principal)
CPT/HCPCS: 36415; 87631

== ENCOUNTER 2024-11-18 09:11 | Outpatient (CLI) | payer OTHER, SELFPAY ==
--- NOTE | 2024-11-18 09:15 | XR_ITS ---
FINAL REPORT CLINICAL HISTORY: lrft leg pain COMPARISON: None FINDINGS: 2 views of the left tibia/fibula were obtained. There is no acute fracture or dislocation. The joint spaces are intact. There is no soft tissue abnormality. IMPRESSION: No acute bony abnormality. Reviewed, Interpreted and Dictated by Pavan Hernandez MD Transcribed by Ilene Ayala Authenticated and [facility]
== END 2024-11-18 23:59 | disposition home or self-care (01) ==
LOC: RAD 09:11
PROVIDERS: PCP Internal Medicine; Visit Provider Physician Assistant
DX: M79.605 Pain in left leg (principal)
CPT/HCPCS: 73590

== ENCOUNTER 2025-01-22 07:24 | Outpatient (CLI) | payer OTHER, SELFPAY ==
--- NOTE | 2025-01-22 | MR_ITS ---
FINAL REPORT TECHNIQUE: Multiplanar and multisequence MR imaging was obtained through the thoracic spine before and after the administration of IV contrast. 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 prior imaging done at another facility COMPARISON: None available FINDINGS: There is normal alignment of the thoracic vertebral bodies. Vertebral body height is preserved. There is no evidence of bone marrow edema. Signal intensity within the substance of the spinal cord is normal. No abnormal cord enhancement. There is a T2 hyperintense left paraspinal mass at the level of T4-5 measuring 23 mm in axial dimension. This is incompletely imaged on the sagittal sequences. It is hypointense on the T1 weighted imaging. There is no enhancement postcontrast. The lesion does not extend into the neural foramen. There is no widening of the left T4-5 neural foramen. No other paraspinal masses identified. No focal disc herniation is noted. There is no evidence of central canal stenosis or neural foraminal narrowing. 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 This does not enhance and does not appear to extend into the neural foramen. This is not a typical nerve sheath tumor and could represent congenital cyst. Cystic degeneration of nerve sheath tumor is less likely. Recommend follow-up. Reviewed, Interpreted and Dictated by Evelyne Garrett MD Transcribed by Ilene Ayala Authenticated and [facility]
--- OUTSIDE RECORDS SUMMARY | 2025-01-22 07:27 | XMS_ITS | Encounter Summary ---
Author Organization Healthcare Address [address] [place] [address] Care Team Providers Care Press Secretary Name Role Phone StivenManuel Juan Ramon DONOHUE Primary Care Provider [phone] Encounter Details Date Type Department Care Team (Late st Contact Info) Description 09/24/2024 Results Follow-Up [facility] Medicine Specialties [address] [place] [address] Dary Mayes, DO [address] [place] [address] Social History Tobacco Use Types Packs/Day Years Used Date Smoking Tobacco: Never Smokeless Tobacco: Never Alcohol Use Standard Drinks/Week Comments Yes 0 (1 standard drink = 0.6 oz pur e alcohol) social Humiliation, Afraid, Rape, and Kick questionnair e Answer Date Recorded Within the last year, have y ou been afraid of your partner or ex-partner? No 10/06/2024 Within the last year, have y ou been humiliated or emotionally abused in other ways by your partner or ex-partner? No Within the last year, have y ou been kicked, hit, slapped, or otherwise physically hurt by your partner or ex-partner? No 10/06/2024 Within the last year, have y ou been raped or forced to have any kind of sexual activity by your partner or ex-partner? No 10/06/2024 Overall Financial Resource Strain (CARDIA) Answe r Date Recorded How hard is it for you to pa y for the very basics like food, housing, medical care, and heating? Not hard at all 09/04/2024 PHQ-2 Answer Date Recorded Patient Health Questionnaire-2 Score 0 09/24/2024 Hunger Vital Sign Answer Date Recorded Within the past 12 months, y ou worried that your food would run out before you got the money to buy more. Never true 10/07/19 25 Within the past 12 months, t he food you bought just didn't last and you didn't have money to get more. Never true 10/06/2024 PRAPARE - Transportation Answer Date Re corded In the past 12 months, has l ack of transportation kept you from medical appointments or from getting medications? No 09/22 In the past 12 months, has l ack of transportation kept you from meetings, work, or from getting things needed for daily living? No 10/06/2024 Housing Stability Vital Sign Answer Tristin e Recorded In the last 12 months, was t here a time when you were not able to pay the mortgage or rent on time? No 10/06/2024 In the past 12 months, how m any times have you moved where you were living? 0 10/06/2024 At any time in the past [address] [facility], were you homeless or living in a nursing home (including now)? No 10/06/2024 CAGE ASSESSMENT Answer Date Recorded Cage unable to access Not on file 10/05/2024 Maximum number of drinks you had on a given occasion in the last month? 0 drinks 10/05/2024 How many alcoholic Beverages do you typically drink in a week? 0 - 7 per week 10/05/2024 Have you ever felt you should CUT down on your d rinking? 0 10/05/2024 Have you been ANNOYED by peo ple criticizing your drinking? 0 10/05/2024 Have you felt GUILTY about your drinking? 0 10/05/2024 Have you had a drink first t hansel in the morning ([employer] ANALYST) to steady your nerves or to get rid of a hangover? 0 10/05/2024 CAGE Questionnaire Score 0 025 Utilities Answer Date Recorded In the past 12 months has th e electric, gas, oil, or water company threatened to shut off services in your home? No 10/06/2024 Comments Unknown Sex and Gender Information Value Date Recorded Sex Assigned at Not on file Legal Sex Female 8:56 PM EDT Gender Identity Not on file Sexual Orientation Not on file documented as of this encounter Functional Status * Over the past 2 weeks, how often have you been bothered by any of the following problems? Question Answer Date of Assessment Author Little interest or pleasure in doing things Not at all 09/24/2024 7:31 AM EDT Cristal Goodman Feeling down, depressed, or hopeless Not at all 09/24/2024 7:31 AM EDT Cristal Goodman Patient Health Questionnaire -2 Score 0 09/24/2024 7:31 AM EDT Cristal Goodman * Calculated C-SSRS Risk Score (Lifetime/Recent) Answer Date of Assessment Author No Risk Indicated 10/08/2024 8:00 AM EDT Los Kay RN * Question Answer Date of Assessment Author 1. Wish to be (Past 1 Month) No 025 8:00 AM THIAGOT Los Kay RN 2. Non-Specific Active Suici dacia Thoughts (Past 1 Month) No 10/08/2024 8:00 AM THIAGOT Los Kay RN 6. Suicidal Behavior (Lifetime) No 8:00 AM THIAGOT Los Kay RN documented as of this encounter Plan of Treatment Not on file documented as of this encounter Visit Diagnoses Not on filedocumented in this encounter Additional Health Concerns Assessment Noted Time A fall risk assessment has been complete d for the patient 09/24/2024 7:32 AM EDT A Body Mass Index follow-up plan has been documented for the patient 09/05/2024 1:41 PM EDT documented as of this encounter Care Teams Press Secretary Relationship Specialty Start Date End Date Manuel Saleem DO [address] [place] [address] [place] [id number] PCP - General 09/24/24 documented as of this encounter
--- OUTSIDE RECORDS SUMMARY | 2025-01-22 07:27 | XMS_ITS | Clinical Summary ---
Author Organization [facility] Address [address] [place] [address] Care Team Providers Care Stunt Man Name Role Phone Manuel Saleem Juan Ramon DO Primary Care Provider [phone] Allergies Active Allergy Reactions Criticality Noted Date Comments Latex Rash Low 09/03/2024 Medications omeprazole (PriLOSEC) [address] capsule Take 1 capsule by mouth in the morning and 1 capsule before bedtime. Do not crush or chew. Active acetaminophen (Tylenol) 500 MG tablet Take 2 tablets (1,000 mg) by mouth every 6 hours as needed for pain. 100 tablet 09/05/2024 Active apixaban (Eliquis) 5 MG tablet Take 2 tablets by mouth 2 (two) times a day for 6 days, THEN 1 tablet 2 (two) times a day. 204 tablet 10/08/2024 Active Active Problems Problem Noted Date Diagnosed Date Acute deep vein thrombosis of peroneal vein, lef t 10/05/2024 Vasculitis 09/04/2024 Immunizations Immunization Administration Dates Next Due MMR 10/02/2008 Social History Tobacco Use Types Packs/Day Years Used Date Smoking Tobacco: Never Smokeless Tobacco: Never Tobacco Cessation:Counseling Given: Not Answered Alcohol Use Standard Drinks/Week Comments Yes 0 [...] any time in the past 12 m [facility], were you homeless or living in a jail (including now)? 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 0 10/05/2024 CAGE Questionnaire Score 0 025 Utilities Answer Date Recorded In the past 12 months has th e [employer], gas, oil, or water company threatened to shut off services in your home? No 10/06/2024 Comments Unknown Sex and Gender Information Value Date Recorded Sex Assigned at Not on file Legal Sex Female 8:56 PM EDT Gender Identity Not on file Sexual Orientation Not on file Last Filed Vital Signs Vital Sign Reading Time Taken Comments Blood Pressure 122/91 10/08/2024 3:53 PM EDT Pulse 98 10/08/2024 3:53 PM EDT Temperature 37.1 C (98.8 F) 10/08/2024 3:53 PM EDT Respiratory Rate 16 10/08/2024 3:53 PM EDT Oxygen Saturation 94% 10/08/2024 3:53 PM EDT Inhaled Oxygen Concentration - - Weight 70.8 kg (156 lb) 10/06/2024 6:14 PM EDT Height 160 cm (5' 3 ) 10/06/2024 6:14 PM EDT Body Mass Index 27.63 10/06/2024 6:14 PM EDT Plan of Treatment Health Maintenance Due Date Last Done Comments [facility]-/Child/Adol SDOH Screenings 1987 HPV Vaccines (1 - 3-dose series) 2002 [facility]-Hepatitis B Vaccines (1 of 3 - 19+ 3-dose series) 2006 [facility]-Varicella Vaccines (1 of 2 - 13+ 2-dose series) 10/30/2008 [facility]-Pap Smear 04/02/2011 04/02/2008 [facility]-Cervical Cancer Screening 2017 [facility]-HPV/Cotest 2017 04/02/2008 [id number] Vaccine (3 - season) 2024 08/05/2020, 07/05/2020 [facility]-Influenza Vaccine (#1) 2025 04/11/2016 [facility]- SDOH Screenings 04/07/2025 [facility]-Adult SDOH Screenings 04/07/2025 10/06/2024 [facility]-Depression Screening 09/24/2025 09/24/2024 [facility]-DTaP,Tdap,and Td Vaccine s (2 - Td or Tdap) 05/01/2028 05/01/2018 [facility]-Zoster Vaccines (1 of 2) 2037 [facility]-Hepatitis A Vaccines Aged Out 06/18/2018 No longer eligible based on patient's age to complete this topic [facility]-HIV Screening Completed 09/03/2024 [facility]-Hepatitis C Screening Completed 2024, 09/03/2024 [facility]-Obesity Intervention Completed 025, 09/03/2024 [facility]-HIB Vaccines Aged Out No longer e ligible based on patient's age to complete this topic [facility]-IPV Vaccines Aged Out No longer e ligible based on patient's age to complete this topic [facility]-Pneumococcal Vaccine: Pediatrics (0 to 5 Years) and At-Risk Patients (6 to 49 Years) Aged Out No longer eligible b ased on patient's age to complete this topic [facility]-Rotavirus Vaccines Aged Out No lo nger eligible based on patient's age to complete this topic Procedures Procedure Name Priority Date/Time Associated Diagnosis Comments HEPATITIS C ANTIBODY - ED W/REFLEX TO HCV QUANT PCR Routine 09/04/2024 4:03 AM EDT ED HIV 1/2 ANTIBODY/ANTIGEN SCREEN WITH REFLEX TO HIV I/II DIFFERENTIATION STAT 09/03/2024 8:12 PM EDT CYTO DATA CONVERSION Routine 04/02/2008 12:00 AM EDT from Last 3 Months or Most Recently Relevant to Health Maintenance Results * Hepatitis C Antibody - ED W/Reflex to HCV Quant PCR (09/04/2024 4:03 AM EDT) Hepatitis C Antibody Negative Negative 09/04/2024 4:55 AM EDT [facility] Blood Venous blood specimen / Unknown Venipuncture / Unknown 09/04/2024 4:03 AM EDT 09/04/2024 4:14 AM EDT us Donaldo Finn MD LAB BLOOD ORDERABLES Final Resu lt Performing Organization Address [facility]/ZIP Co de Phone Number [facility] [address] [place] [address] * ED HIV 1/2 Antibody/Antigen Screen w/Reflex to HIV 1/2 Differentiation (09/03/2024 8:12 PM EDT) HIV 1 & 2 Antibody/Antigen Screen Non Reactive Non Reactive 09/03/2024 11:07 PM EDT [facility] Comment:Screening for HIV 1 & 2 antibodies, and P24 antigen is NONREACTIVE. No confirmatory testing is required. Blood Venous blood specimen / Unknown Venipuncture / Unknown 09/03/2024 8:12 PM EDT 09/03/2024 8:47 PM EDT us Tracy Durham DO LAB BLOOD ORDERABLES Final Re sult Performing Organization Address City/[facility] Co de Phone Number [address] [address] * Cytology (04/02/2008 12:00 AM EDT) 04/02/2008 04/05/2008 2:4 2 PM EDT Narrative SUNQUEST - 04/07/2008 2:47 PM EDT [facility] MR #: [id number] [place] [id number] 1985 (Age: 22) FW Collect Date: 04/02/2008 00:00 Receipt Date: 04/05/2008 14:42 Page 1 DEPARTMENT OF PATHOLOGY AND LABORATORY MEDICINE CYTOPATHOLOGY REPORT Email: [email or web address] [id number] ATTENDING MD/Practitioner: Poonam Sanchez MD Service: [facility] Location: [facility] Reported: 04/07/2008 14:47 Collected: 04/02/2008 00:00 INTERPRETATION A. THIN PREP (CERVICAL/VAGINAL): NEGATIVE FOR INTRAEPITHELIAL LESION OR MALIGNANCY. SATISFACTORY FOR EVALUATION; ENDOCERVICAL/ TRANSFORMATION ZONE COMPONENT PRESENT. Slide scanned and imaged by [employer] ThinPrep Imaging System with manual review of all selected watts. Electronically Signed Out By SUZANNE Hinojosa(ASCP) SUZANNE Hinojosa(ASCP) Cervical cytology is a screening test primarily for squamous cancers and precursors and has associated false negative and positive results. New technologies such as liquid based sampling may decrease but will not eliminate all false negative results. Regular screening and follow-up of unexplained clinical signs and symptoms are recommended to minimize false negative results. Please see the ASCCP website (www.asccp.org) for followup recommendations. If HPV testing was requested, correlation with the results is suggested (please call Microbiology at [phone] for results). CLINICAL INFORMATION: Menstrual History: Date of Last Menstrual Period: 12/31/07 Other Clinical Conditions: If ASCUS and > 24 years of age, HPV/DNA testing requested. SPECIMEN DESCRIPTION: A: THIN PREP (CERVICAL/VAGINAL) THIN PREP PROCESS CELLULAR ENHANCEMENT ICD: V76.2 CERVIX, SPECIAL SCREENING FOR MALIGNANT NEOPLASM F: A; RT IMAGE [id number] SNOMED CODES: A; [id number] In cases where a pathologist has signed out the report, the service has been rendered in part by a resident. The signing pathologist has performed and is responsible for the reported pathologic evaluation. Zeyad Sanchez MD LAB PATHOLOGY ORDERABLES Final Result SUNQUEST from Last 3 Months or Most Recently Relevant to Health Maintenance Insurance [facility] Advance Directives * Full Code (Latest Code Status on File) Date Activated Date Inactivated Comments 10/05/2024 10:53 PM 10/08/2024 7:39 PM Question Answer Comments I have reviewed the capacity from the link above and, if needed, have updated to appropriate status: Yes * Full Code Date Activated Date Inactivated Comments 09/04/2024 2:53 AM 09/05/2024 4:01 PM Care Teams Stunt Man Relationship Specialty Start Date End Date Manuel Saleem DO [address] [place] [address] [place] [address] PCP - General 09/24/24
[2025-01-22] MEDS: GADOTERIDOL INJ 20ML SYRINGE 15 ML IV (08:42)
== END 2025-01-22 23:59 | disposition home or self-care (01) ==
LOC: RAD 07:26
PROVIDERS: PCP Internal Medicine; Visit Provider Neurological Surgery
DX: M53.84 Other specified dorsopathies, thoracic region (principal); M54.14 Radiculopathy, thoracic region
CPT/HCPCS: 72146; A9576

== ENCOUNTER 2025-02-05 14:34 | Outpatient (RCR) | payer OTHER, SELFPAY | END 2025-02-05 23:59 | disposition home or self-care (01) | LOC: PT 14:34 | PROVIDERS: PCP Internal Medicine; Visit Provider Podiatrist Foot & Ankle Surgery | DX: I77.6 Arteritis, unspecified (principal); G63 Polyneuropathy in diseases classified elsewhere | CPT/HCPCS: 97162 ==

== ENCOUNTER 2025-02-08 14:20 | Outpatient (CLI) | payer OTHER, SELFPAY ==
--- OUTSIDE RECORDS SUMMARY | 2025-02-08 14:22 | XMS_ITS | Clinical Summary ---
Author Organization [facility] Address [address] [place] [address] Care Team Providers Care Plant Culture Manager Name Role Phone Manuel Saleem Juan Ramon DO Primary Care Provider Allergies Active Allergy Reactions Criticality Noted Date [...] any time in the past 12 m [facility], were you homeless or living in a senior living (including now)? 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 or to get [...] Last Done Comments [facility]-/Child/Adol SDOH Screenings 1987 [facility]-Hepatitis B Vaccines (1 of 3 - 19+ 3-dose series) 2006 [facility]-Varicella Vaccines (1 of 2 - 13+ 2-dose series) 10/30/2008 [facility]-Pap Smear 04/02/2011 04/02/2008 HPV Vaccines (1 - 3-dose SCD M series) 2014 [facility]-Cervical Cancer Screening 2017 [facility]-HPV/Cotest 2017 04/02/2008 [id number] Vaccine (3 - season) 2024 08/05/2020, 07/05/2020 [...] Antibody Negative Negative 09/04/2024 4:55 AM EDT [facility] Blood Venous blood specimen / Unknown Venipuncture / Unknown 09/04/2024 4:03 AM EDT 09/04/2024 4:14 AM EDT us Donaldo Finn MD LAB BLOOD ORDERABLES Final Resu lt Performing Organization Address City/[facility] Co de Phone Number [facility] [address] [place] [address] * ED HIV 1/2 Antibody/Antigen Screen w/Reflex to HIV 1/2 Differentiation (09/03/2024 8:12 PM EDT) HIV 1 & 2 Antibody/Antigen Screen Non Reactive Non Reactive 09/03/2024 11:07 PM EDT [facility] Comment:Screening for HIV 1 & 2 antibodies, and P24 antigen is NONREACTIVE. No confirmatory testing is required. Blood Venous blood specimen / Unknown Venipuncture / Unknown 09/03/2024 8:12 PM EDT 09/03/2024 8:47 PM EDT us Tracy Durham DO LAB BLOOD ORDERABLES Final Re sult Performing Organization Address [facility] Co de Phone Number [facility] [address] [place] [address] * Cytology (04/02/2008 12:00 AM EDT) 04/02/2008 04/05/2008 2:4 2 PM EDT Narrative SUNQUEST - 04/07/2008 2:47 PM EDT [facility] MR #: [id number] [place] [id number] 1985 (Age: 22) FW Collect Date: 04/02/2008 00:00 Receipt Date: 04/05/2008 14:42 Page 1 DEPARTMENT OF PATHOLOGY AND LABORATORY MEDICINE CYTOPATHOLOGY REPORT Email: [email or web address] ATTENDING MD/Practitioner: Poonam Sanchez MD Service: [facility] Location: [facility] Reported: 04/07/2008 14:47 Collected: 04/02/2008 00:00 INTERPRETATION A. THIN PREP (CERVICAL/VAGINAL): NEGATIVE FOR INTRAEPITHELIAL LESION OR MALIGNANCY. SATISFACTORY FOR EVALUATION; ENDOCERVICAL/ TRANSFORMATION ZONE COMPONENT PRESENT. Slide scanned and imaged by [employer] ThinPrep Imaging System with manual review of [...] results is suggested (please call Microbiology at [phone] for results). CLINICAL INFORMATION: Menstrual History: Date of Last Menstrual Period: 12/31/07 Other Clinical Conditions: If ASCUS and > 24 years of age, HPV/DNA testing requested. SPECIMEN DESCRIPTION: A: THIN PREP (CERVICAL/VAGINAL) THIN PREP PROCESS CELLULAR ENHANCEMENT ICD: V76.2 CERVIX, SPECIAL SCREENING FOR MALIGNANT NEOPLASM F: A; RT IMAGE [id number] SNOMED CODES: A; [id number] In cases where a pathologist has signed out the report, the service has been rendered in part by a resident. The signing pathologist has performed and is responsible for the reported pathologic evaluation. Zeyad Sanchez MD LAB PATHOLOGY ORDERABLES Final Result SUNQUEST from Last 3 Months or Most Recently Relevant to Health Maintenance Insurance [facility] Advance Directives * Full Code (Latest Code Status on File) Date Activated Date Inactivated Comments 10/05/2024 10:53 PM 10/08/2024 7:39 PM Question Answer Comments I have reviewed the capacity from the link above and, if needed, have updated to appropriate status: Yes * Full Code Date Activated Date Inactivated Comments 09/04/2024 2:53 AM 09/05/2024 4:01 PM Care Teams Plant Culture Manager Relationship Specialty Start Date End Date Manuel Saleem, [address] [place] [facility] [address] [place] [address] PCP - General 09/24/24
--- NOTE | 2025-02-08 14:30 | CA_ITS ---
FINAL REPORT TECHNIQUE: Ultrasound images of the deep venous system were obtained from the left groin to the calf veins. CLINICAL HISTORY: LLE edema, pain and discoloration Pt stopped Eliquis end of December symptoms returned 2 wks ago. 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 Pt started on Eliquis 10/05/24. FINDINGS: The deep venous system is normally compressible. Normal flow is identified. IMPRESSION: No evidence of left lower extremity DVT. Reviewed, Interpreted and Dictated by Pavan Hernandez MD Transcribed by Alia Flores Authenticated and [facility]
== END 2025-02-08 23:59 | disposition home or self-care (01) ==
LOC: RT 14:20
PROVIDERS: PCP Internal Medicine; Visit Provider Internal Medicine Medical Oncology
DX: I82.402 Acute embolism and thrombosis of unspecified deep veins of left lower extremity (principal); I77.6 Arteritis, unspecified; D72.819 Decreased white blood cell count, unspecified; I82.452 Acute embolism and thrombosis of left peroneal vein
CPT/HCPCS: 93971

== ENCOUNTER 2025-03-19 15:00 | Outpatient (RCR) | payer OTHER, SELFPAY | END 2025-03-19 23:59 | disposition home or self-care (01) | LOC: PT 15:00 | PROVIDERS: PCP Internal Medicine; Visit Provider Podiatrist Foot & Ankle Surgery | DX: I77.6 Arteritis, unspecified (principal); G63 Polyneuropathy in diseases classified elsewhere | CPT/HCPCS: 97110; 97140; 97530 ==

== ENCOUNTER 2025-04-09 15:00 | Outpatient (RCR) | payer OTHER, SELFPAY | END 2025-04-09 23:59 | disposition home or self-care (01) | LOC: PT 15:00 | PROVIDERS: PCP Internal Medicine; Visit Provider Podiatrist Foot & Ankle Surgery | DX: I77.6 Arteritis, unspecified (principal) | CPT/HCPCS: 97035; 97110; 97140 ==

== ENCOUNTER 2025-04-13 10:00 | Outpatient (CLI) | payer OTHER, SELFPAY ==
--- NOTE | 2025-04-13 10:04 | MR_ITS ---
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 Joint fluid: Small Tendons: No evidence of tear Ligaments: Major ligaments unremarkable Plantar fascia: No evidence of tear or fasciitis. No evidence of cystic or soft tissue mass. IMPRESSION: No mass identified. Degenerative changes, likely accounting for signal abnormalities of the navicular bone. Reviewed, Interpreted and Dictated by Maren De La Garza MD Transcribed by Tish Mazariegos Authenticated and [facility]
== END 2025-04-13 23:59 | disposition home or self-care (01) ==
LOC: RAD 10:01
PROVIDERS: PCP Internal Medicine; Visit Provider Podiatrist Foot & Ankle Surgery
DX: M19.072 Primary osteoarthritis, left ankle and foot (principal); S86.112A Strain of other muscle(s) and tendon(s) of posterior muscle group at lower leg level, left leg, initial encounter
CPT/HCPCS: 73721

== ENCOUNTER 2025-05-11 15:48 | Outpatient (CLI) | payer OTHER, SELFPAY ==
[2025-05-14 08:14] LABS: Antinuclear Antibodies (ANA) Negative (Negative)
== END 2025-05-11 23:59 | disposition home or self-care (01) ==
LOC: LAB 15:48
PROVIDERS: PCP Internal Medicine; Visit Provider Nurse Practitioner Family
DX: R76.89 Other specified abnormal immunological findings in serum (principal)
CPT/HCPCS: 36415